=== PATIENT | male | born 1960 | race Caucasian/White ===

== ENCOUNTER 2025-09-06 02:07 | Inpatient (IN) | payer MEDICAID, SELFPAY ==
[2025-09-06] VITALS (111 sets, daily range): BP systolic 60–178; BP diastolic 47–110; PULSE 71–108; RESP 14–24; TEMP 35.5–37.7; O2SAT 96–100; BMI 19.1
--- NOTE | 2025-09-06 02:39 | CTR_ITS ---
PROCEDURE INFORMATION: Exam: CT Head Without Contrast Exam date and time: 09/06/2025 2:56 AM Age: 64 years old Clinical indication: Altered mental status/memory loss; Additional info: AMS, cardiac arrest TECHNIQUE: Imaging protocol: Computed tomography of the head without contrast. Radiation optimization: All CT scans at this facility use at least one of these dose optimization techniques: automated exposure control; mA and/or kV adjustment per patient size (includes targeted exams where dose is matched to clinical indication); or iterative reconstruction. COMPARISON: No relevant prior studies available. RADIATION DOSE METRICS: Total DLP (mGy-cm): 1108.8 FINDINGS: Brain: No edema, mass effect, or midline shift. No acute intracranial hemorrhage. Periventricular and deep white matter hypodensities compatible with chronic microvascular ischemic changes. Chronic left basal ganglia lacunar infarcts. Cerebral ventricles: No ventriculomegaly. Paranasal sinuses: Visualized sinuses are unremarkable. No fluid levels. Mastoid air cells: No mastoid effusion. Bones: Unremarkable. No acute fracture. Soft tissues: Unremarkable. CT/CT head wo con* 11317 IMPRESSION: No acute intracranial abnormality.
--- NOTE | 2025-09-06 02:39 | CTR_ITS ---
PROCEDURE INFORMATION: Exam: CTA Chest With Contrast Exam date and time: 09/06/2025 3:00 AM Age: 64 years old Clinical indication: Other: AMS, cardiac arrest; Shortness of breath TECHNIQUE: Imaging protocol: Computed tomographic angiography of the chest with contrast. Exam focused on the arteries. 3D rendering (Not supervised by radiologist): MIP and/or 3D reconstructed images were created by the technologist. Radiation optimization: All CT scans at this facility use at least one of these dose optimization techniques: automated exposure control; mA and/or kV adjustment per patient size (includes targeted exams where dose is matched to clinical indication); or iterative reconstruction. Contrast material: OMNI 350; Contrast volume: 100 ml; Contrast route: INTRAVENOUS (IV); COMPARISON: No relevant prior studies available. RADIATION DOSE METRICS: Total DLP (mGy-cm): 735.08 FINDINGS: Tubes, catheters and devices: Endotracheal tube tip resides above paulette. Enteric tube extends to the stomach. Pulmonary arteries: There is a segment of peripheral pulmonary artery the lingula extending anteriorly concerning for segment of pulmonary embolus which could be acute or chronic. Series 7 images 280-286. Aorta: Calcification thoracic aorta. The aorta lumen is not well evaluated due to contrast opacification of the right heart online. Lungs: Diffuse ground-glass opacities throughout both lungs. More focal patchy parenchymal infiltrates left lower lobe and throughout a large portion of the posterior right lung with airspace consolidation most noted in the right lower lobe. Granulomatous calcification left lower lobe medially. Pleural spaces: Bilateral small pleural effusions. Heart: Cardiac enlargement with dilatation of the left atrium and left ventricle. Normal right to left ventricular ratio 0.75. Coronary arteries: Calcification distribution of coronary arteries. Lymph nodes: Unremarkable. No enlarged lymph nodes. Bones/joints: Unremarkable. No acute fracture. Soft tissues: Unremarkable. PROCEDURE INFORMATION: Exam: CT Abdomen And Pelvis With Contrast Exam date and time: 09/06/2025 3:00 AM Age: 64 years old Clinical indication: Other: AMS, cardiac arrest; Shortness of breath TECHNIQUE: Imaging protocol: Computed tomography of the abdomen and pelvis with contrast. Radiation optimization: All CT scans at this facility use at least one of these dose optimization techniques: automated exposure control; mA and/or kV adjustment per patient size (includes targeted exams where dose is matched to clinical indication); or iterative reconstruction. Contrast material: OMNI 350; Contrast volume: 100 ml; Contrast route: INTRAVENOUS (IV); COMPARISON: No relevant prior studies available. RADIATION DOSE METRICS: Total DLP (mGy-cm): 735.08 FINDINGS: Liver: Normal. No mass. Gallbladder and biliary ducts: Normal. No calcified stones. No ductal dilation. Pancreas: Normal. No ductal dilation. Spleen: Small areas of decreased attenuation within the spleen are indeterminate. Adrenal glands: Normal. No mass. Kidneys and ureters: Bilateral renal cysts. The largest left kidney measures 5.7 cm. Prominent interspace narrowing at L4 and L5. Exophytic lesion lateral left kidney measures 1.6 cm of higher attenuating value than simple cyst HU 40. Stomach and bowel: Prominent air distension of the stomach. Minor colonic diverticulosis. Appendix: No evidence of appendicitis. Intraperitoneal space: Unremarkable. No free air. No significant fluid collection. Vasculature: Calcified abdominal aorta. Lower attenuation areas within venous vasculature in the pelvis could be on the basis of venous contrast mixing. Small collections of air near branch venous vasculature at the right inguinal soft tissues potentially related to contrast administration. Lymph nodes: Unremarkable. No enlarged lymph nodes. Urinary bladder: Numerous bladder calculi. Moderate bladder distension. Focal areas of bladder wall thickening bilaterally. Reproductive: Enlargement of the prostate gland with heterogeneous appearance. There is a superior prostate nodule/mass measuring 3.3 cm impressing the bladder base. Prostate gland calcifications. Bones/joints: Degenerative change of the spine. Soft tissues: Unremarkable. CT/CT angio chest w abd pel w con IMPRESSION: 1. Possible segment of peripheral pulmonary artery embolus at the lingula. 2. Calcified thoracic aorta with limited assessment of the lumen by noncontrast opacification due to pulmonary embolus protocol. 3. Bilateral small pleural effusions. 4. Diffuse prominent ground-glass opacities throughout both lungs which could be on the basis of edema or infectious etiology. 5. Or focal interstitial infiltrates left lower lung and throughout the right lung most pronounced in the right lower lobe suspicious for pneumonia potentially aspiration. 6. Cardiac enlargement. (In IMPRESSION: 1. Bilateral renal cysts. No follow-up is required. 2. Scattered peripheral small lower attenuating areas and spleen are indeterminate. Differential might include small infarcts are should be correlated for any history of neoplasm for infiltrative process. 3. Multiple bladder calculi. 4. Enlargement of the prostate gland with lobular mass at the junction of bladder base and superior prostate gland probably a prostate gland origin. Consider genitourinary consultation. 5. Small low attenuating areas at the inguinal venous vasculature probably on the basis of venous contrast mixing. 6. Lower attenuating lesion lateral left kidney of higher attenuating cyst although further investigation is required with multiphase CT or multiphase MRI. COMMENTS: Consistent with the [employer]'s Incidental Findings Committee white paper (J Am April Radiol 2018): Any incidental renal lesion less than 1 cm or classified as too small to characterize, or any incidental cystic renal lesion characterized as simple-appearing, is likely benign. No follow-up imaging is recommended for these lesions per consensus recommendations based on imaging criteria.
--- NOTE | 2025-09-06 02:40 | XRR_ITS ---
PROCEDURE INFORMATION: Exam: XR Chest Exam date and time: 09/06/2025 3:07 AM Age: 64 years old Clinical indication: Device placement; Other: Ett and ng tube placement; Additional info: S/P intubation for cardiac arrest, SOB TECHNIQUE: Imaging protocol: Radiologic exam of the chest. Views: 1 view. COMPARISON: CT angio chest w abd pel w con 09/06/2025 3:00 AM FINDINGS: Tubes, catheters and devices: Endotracheal tube tip resides 3.0 cm above the paulette. Enteric tube extends to the left upper quadrant. A prominent portion of the left heart and left lung medially are obscured by external defibrillator pad. Lungs: Diffuse vascular congestion and suspected underlying interstitial edema. More focal airspace consolidation throughout the right lung which could reflect airspace edema or infiltrate. Correlate to CTA chest. Pleural spaces: Small pleural effusions are not apparent as concurrently demonstrated by CTA chest. No pneumothorax. Heart/Mediastinum: Accentuated heart size. Bones/joints: Unremarkable. XR/XR chest 1V portable [id number] IMPRESSION: 1. Accentuated heart size. 2. Vascular congestion and suspected interstitial edema. 3. More focal central airspace consolidation greater on the right which could reflect airspace edema or pneumonia versus combination in aspiration to the right lung is potential as correlated to concurrent CTA chest.
--- NOTE | 2025-09-06 02:41 | ECG_ITS ---
[facility] Date: 2025-09-06 Pat Name: Kel Pagan Department: Room: Gender: Male Assistant Portfolio Manager: : [id number] Requested By: Fernando Hunter Order Number: [id number] Post MD: Patel Ramos M.D. Measurements Intervals [place] Rate: 141 P: 0 NM: 0 QRS: 111 QRSD: 144 T: 47 QT: 301 QTc: 461 Interpretive Statements ATRIAL FLUTTER/TACHYCARDIA WITH RAPID VENTRICULAR RESPONSE INDETERMINATE AXIS RIGHT BUNDLE BRANCH BLOCK [120+ ms QRS DURATION, UPRIGHT V1, 40+ ms S IN I/aVL/V4/V5/V6] No previous ECG available for comparison Electronically Signed On 09-06-2025 23:40:37 TRAIN BRAKER by Patel Ramos M.D. [email or web address]
[2025-09-06 02:44] LABS: Arterial Blood Gas Hematocrit 54.6 % (42-52); Blood Gas Allen Test Pos; Blood Gas Operator Identificat SAM; Blood Gas Sample Site Radial, right; Blood Gas Sample Type Arterial; Blood Gas Tidal Volume 0.40; Carboxyhemoglobin 0.7 %THgb (0.4-20.1); HCO3 ABG 17.5 mmol/L (22-26); Methemoglobin 0.2 % (0.4-1.5); PEEP 7.0 cmH20; PO2 ABG 89.7 mmHg (80.0-100.0); PO2 FiO2 Ratio Arterial Blood 89
--- NOTE | 2025-09-06 02:58 | PC.NURSE ---
Code Blue 0216 Pulse not felt, pt agonal and unresponsive CPR Started 0218 Right Tibia IO established 0219 Pulse Check - PEA/No palatable pulse, CPR resumed 0220 1 Amp Epi Bedside US + Heart wall movement HR 210 spontaneous breaths 0222 BP 270/211 0225 20 mg Etomidate 60 mg Vecuronium 0226 HR 155 BP 272/191 SPO2 88% - Assisted Breaths [address] uHnter 23 @ lip (+ color change, + bilateral breath sounds) Ordered: Full labs, Head CT, Chest/Abd/Pelvis CT, Fentanyl and Levo gtt on stand by 0232 HR 141 SPO2 94% 231/155 EKG Performed
--- NOTE | 2025-09-06 03:03 | ED_ITS ---
HPI - SOB/Dyspnea 2 General: Chief Complaint: Shortness of Breath/Dyspnea Stated Complaint: SOB Time Seen by Provider: 09/06/25 02:39 History of Present Illness: HPI Narrative: 64-year-old male with a history of hyper tension presenting to the emergency department with few hour history of acute onset shortness of breath, history obtained by given patient critically ill on arrival and unable to provide history. She reports that he has been complaining of chest pains on and off over the last few years, he has complained of that over the last few days but that was not unusual for him, he has a history of former alcohol abuse but has not drank alcohol in years, she denies any known history of drug abuse, she denies any known history of falls or recent trauma, reports that he developed shortness of breath acutely this evening, brought him to the hospital, patient was found appearing critically ill in the car outside of the emergency department brought in by staff to the emergency department resuscitation bay. On arrival to the ER patient appeared critically ill but was able to speak and tell me his name, reports that he had shortness of breath as well as head chest and abdominal pain. Shortly after arrival to the emergency department and during initial evaluation patient developed agonal breathing and unresponsiveness, see MDM for details. Related Data Allergies Allergy/AdvReac Type Severity Reaction Status Date / Time No Known Allergies Allergy Verified 09/06/25 02:24 Physical Exam 2 Narrative: EXAM NARRATIVE: Gen: AAO x 1, acutely cool and mottled appearing, critically ill, nondiaphoretic HEENT: Normocephalic, atraumatic, no scleral icterus, external ears normal, moist mucous membranes Neck: Supple, full range of motion, possible midline goiter Lungs: Patient markedly tachypneic on arrival to the mid to upper 20s, diffuse rales to the bilateral lung schuler, no reliable oxygen waveform available on arrival CV: On arrival patient had a mild tachycardia to approximately 100, appeared regular Abdomen: Soft, nondistended, nontender to palpation MSK: No joint swelling, FROM all 4 extremities Skin: Skin is cool and mottled Neuro: Alert and oriented x 1, no slurred speech, sensation and strength grossly intact all 4 extremities Procedures Central Line Placement Left Femoral: Time Out Performed: Yes Patient Placed on Monitor/Pulse Ox: Yes MD Prep: mask, gown and gloves Central Line Prep: Chlorhexidine scrub and sterile drapes applied Ultrasound Used for Placement: Yes Central Line Lumen Inserted: triple Post Procedure: sutured in place, good blood return, all ports aspirated, flushed, capped and sterile dressing applied Intubation Time out performed: No sedative: Etomidate Mg Given: 20 paralytic: Vecuronium Mg Given: 6 Laryngoscope: Johan ET Tube Size: 8 ET Tube Uncuffed: No Tube Secured Depth (cm): 23 Tube Secured Location: lips Tube Placement Confirmation: visualized tube passing through cords, equal breath sounds bilaterally, no breath sounds over epigastrium and confirmation by capnometry IO Right Tibia: IO Instrument Used to Penetrate the Cortex: battery powered IO drill Course 2 Reevaluation(s): Reevaluation #1: Central line placed by myself in the left femoral vein without complication at this time, workup showing elevation in LFTs as well as glucose, elevated proBNP, minimally elevated troponin, elevated white count, pending radiology reads but appears to have pulmonary vascular congestion versus pneumonitis versus pneumonia as his predominant finding, covered with empiric antibiotics, starting sedation, will give IV labetalol for marked hypertension 190s over 130s. Time: 04:01 Reevaluation #2: Patient with marked drop in blood pressure, coinciding with administration of labetalol but also with Ledezma placement for which there was a rapid 1 L output, I suspect the patient may have had a component of acute urinary retention that was exacerbating his hypertension, will start Levophed, patient on Rachel hugger for hypothermia to 95 Fahrenheit, propofol currently held temporarily until blood pressure improves. Time: 04:13 Reevaluation #3: BP rapidly improved, now hypertensive 160s over 109, Levophed decreased to 5, propofol now up to 10 mcg/kg/min, will initiate low-dose fentanyl at 25 mics per hour to address any hypertension related to light sedation, will leave Levophed at low-dose 5 mics per minute for now until we can titrate a steady dose of sedative and discontinue thereafter if hemodynamics still stable Time: 04:49 Consultations: Consultation #1: Spoke with hospitalist Dr. Jay who will come see the patient in the ER for evaluation and admission Time: 04:50 Vital Signs: Vital signs: Vital Signs Temperature 95.9 F L 09/06/25 04:00 Pulse Rate 108 H 09/06/25 02:10 Respiratory Rate 14 09/06/25 02:25 Blood Pressure 178/110 09/06/25 02:10 Fraction of Inspir ed Oxygen 100 09/06/25 02:25 MDM - SOB/Dyspnea Medical Decision Making 64-year-old male with a past medical history of hypertension, no other known significant medical history although reports that he does not seek medical care and avoids doctors so unclear medical history, presenting the emergency department with acute onset of dyspnea at home times few hours, on arrival to the emergency department patient was awake and alert, able to repeat his name and briefly describe his symptoms but appeared cool and mottled with increased work of breathing, within a couple minutes of arriving to the emergency department patient stopped responding, agonal breathing noted, initial mild tachycardia decreased to a minor bradycardia in the 50s and no pulse was felt, ACLS was initiated for presumed pulseless electrical activity/cardiac arrest of unclear etiology, right tibial IO was placed without complication and given epinephrine, patient was bagged until RSI could be administered because he would intermittently move his arms but was not significantly responsive or able to protect his airway, RSI was administered with etomidate and vecuronium and patient was intubated via direct laryngoscopy with a 8.0 Ugandan ET tube to 23 cm at the lip without complication, after 1 round of CPR pulse was felt, CPR terminated, repeat blood pressure showing marked hypertension 240 systolic with tachycardia in the 130s and EKG showing what appeared to be in atrial flutter/atrial tachycardia, there was significant T wave inversions in the anterior leads but no STEMI criteria, differential of patient's cardiac arrest is broad but includes heart failure with hypercapnic respiratory failure secondary to undiagnosed underlying cardiac disease, intracranial hemorrhage, aortic dissection, plan for CT of the head chest abdomen pelvis, labs, titrate sedation, trial of IV labetalol, continue to monitor. Prognosis guarded, updated on current situation Lab Data Lab work significant for leukocytosis to 17, also noted to have thrombocytosis to 600 and mild erythrocytosis to 17.9, remainder of blood work also significant for elevated lactic acidosis to 9 and pH shortly after intubation with a pCO2 in the 70s for which respiratory rate was increased by respiratory therapy at time of ABG result, creatinine normal, glucose elevated at 324, troponin elevated at 69 and proBNP 2458 09/06/25 02:45 09/06/25 02:45 Labs/Radiology: Radiology Impressions Chest/Abdomen/Pelvis CT 09/06/25 02:39 IMPRESSION: 1. Possible segment of peripheral pulmonary artery embolus at the lingula. 2. Calcified thoracic aorta with limited assessment of the lumen by noncontrast opacification due to pulmonary embolus protocol. 3. Bilateral small pleural effusions. 4. Diffuse prominent ground-glass opacities throughout both lungs which could be on the basis of edema or infectious etiology. 5. Or focal interstitial infiltrates left lower lung and throughout the right lung most pronounced in the right lower lobe suspicious for pneumonia potentially aspiration. 6. Cardiac enlargement. (In IMPRESSION: 1. Bilateral renal cysts. No follow-up is required. 2. Scattered peripheral small lower attenuating areas and spleen are indeterminate. Differential might include small infarcts are should be correlated for any history of neoplasm for infiltrative process. 3. Multiple bladder calculi. 4. Enlargement of the prostate gland with lobular mass at the junction of bladder base and superior prostate gland probably a prostate gland origin. Consider genitourinary consultation. 5. Small low attenuating areas at the inguinal venous vasculature probably on the basis of venous contrast mixing. 6. Lower attenuating lesion lateral left kidney of higher attenuating cyst although further investigation is required with multiphase CT or multiphase MRI. COMMENTS: Consistent with the [employer]'s Incidental Findings Committee white paper (J Am April Radiol 2018): Any incidental renal lesion less than 1 cm or classified as too small to characterize, or any incidental cystic renal lesion characterized as simple-appearing, is likely benign. No follow-up imaging is recommended for these lesions per consensus recommendations based on imaging criteria. ADDENDUM: 09/06/25 0437 THIS REPORT CONTAINS FINDINGS THAT MAY BE CRITICAL TO PATIENT CARE. The findings were verbally communicated via telephone conference with Fernando Demarco by Dr. Howell on 09/06/2025 4:35 AM OPHTHALMIC LENS INSPECTOR. The results were acknowledged and understood. Head CT 09/06/25 02:39 IMPRESSION: No acute intracranial abnormality. Chest X-Ray 09/06/25 02:40 IMPRESSION: 1. Accentuated heart size. 2. Vascular congestion and suspected interstitial edema. 3. More focal central airspace consolidation greater on the right which could reflect airspace edema or pneumonia versus combination in aspiration to the right lung is potential as correlated to concurrent CTA chest. Laboratory Results WBC 17.66 10^3/uL (3.29-11.43) H 09/06/25 02:45 RBC 6.73 10^6/uL (3.85-5.65) H 09/06/25 02:45 Hgb 17.90 g/dL (11.27-16.99) H 09/06/25 02:45 Hct 58.3 % (37-53) H 09/06/25 02:45 MCV 86.6 fl (82-101) 09/06/25 02:45 MCH 26.6 pg (27-33) L 09/06/25 02:45 MCHC 30.7 g/dL (30-55) 09/06/25 02:45 RDW 15.9 % (12.1-15.1) H 09/06/25 02:45 Plt Count 605 10^3/cmm (157-399) H 09/06/25 02:45 MPV 10.9 fL (7.4-10.4) H 09/06/25 02:45 Neut % (Auto) 55.8 % 09/06/25 02:45 Lymph % (Auto) 35.1 % 09/06/25 02:45 Louisa % (Auto) 4.0 % 09/06/25 02:45 Eos % (Auto) 2.0 % 09/06/25 02:45 Baso % (Auto) 0.9 % 09/06/25 02:45 Neut # (Auto) 9.85 10^3/uL (1.8-7.7) H 09/06/25 02:45 Lymph # (Auto) 6.2 10^3/uL (0.8-4.8) H 09/06/25 02:45 Louisa # (Auto) 0.7 10^3/uL (0.2-0.9) 09/06/25 02:45 Eos # (Auto) 0.4 10^3/uL (0.0-0.8) 09/06/25 02:45 Baso # (Auto) 0.2 10^3/uL (0.0-0.1) H 09/06/25 02:45 Nucleated RBC % (auto) 0 % 09/06/25 02:45 Nucleated RBCs # 0.0 /100WBC 09/06/25 02:45 PT 14.80 SECONDS (12.1-14.9) 09/06/25 02:45 INR 1.08 (0.8-1.2) 09/06/25 02:45 APTT 59.9 SECONDS (23.9-36.7) H 09/06/25 02:45 Specimen Type Arterial 09/06/25 02:32 Sample Site Radial, right 09/06/25 02:32 ABG pH 7.00 (7.35-7.45) L* 09/06/25 02:32 ABG pCO2 71.2 mmHg (35-45) H* 09/06/25 02:32 ABG pO2 89.7 mmHg (80.0-100.0) 09/06/25 02:32 ABG PO2/FiO2 Ratio 89 09/06/25 02:32 ABG HCO3 17.5 mmol/L (22-26) L 09/06/25 02:32 ABG Base Excess -15.5 mmol/L (-2.0-2.0) L 09/06/25 02:32 Jerel Test Pos 09/06/25 02:32 Hematocrit 54.6 % (42-52) H 09/06/25 02:32 Hgb O2 Saturation 89.5 % (95-100) L 09/06/25 02:32 Carboxyhemoglobin 0.7 %THgb (0.4-20.1) 09/06/25 02:32 Methemoglobin 0.2 % (0.4-1.5) L 09/06/25 02:32 Total Hemoglobin 17.8 g/dL (14-18) 09/06/25 02:32 O2 Delivery Device Vent 09/06/25 02:32 FiO2 100.0 % 09/06/25 02:32 Tidal Volume 0.40 09/06/25 02:32 PEEP 7.0 cmH20 09/06/25 02:32 Colorist Photography ID Preet 09/06/25 02:32 Sodium 138 mmol/L (136-145) 09/06/25 02:45 Potassium 3.5 mmol/L (3.5-5.1) 09/06/25 02:45 Chloride 97 mmol/L (98-107) L 09/06/25 02:45 Carbon Dioxide 17 mmol/L (22-29) L 09/06/25 02:45 Anion Gap 27.5 (5-19) H 09/06/25 02:45 BUN 17 mg/dL (8-23) 09/06/25 02:45 Creatinine 0.5 mg/dL (0.7-1.2) L 09/06/25 02:45 GFR Calculation 166.4 mL/min (90-130) H 09/06/25 02:45 Glucose 324 mg/dL (65-115) H 09/06/25 02:45 POC Glucose 151 mg/dL (70-110) H 09/06/25 02:20 Calculated Osmolality 300 mOsm/kg (285-295) H 09/06/25 02:45 Lactic Acid 9.9 mmol/L (0.5-2.2) H* 09/06/25 02:45 Calcium 9.1 mg/dL (8.5-10.5) 09/06/25 02:45 Magnesium 2.6 mg/dL (1.7-2.3) H 09/06/25 02:45 Total Bilirubin 1.6 mg/dL (0.15-1.2) H 09/06/25 02:45 AST 49 U/L (0-40) H 09/06/25 02:45 ALT 42 U/L (0-41) H 09/06/25 02:45 Alkaline Phosphatase 96 U/L (40-130) 09/06/25 02:45 Troponin T Baseline 69 ng/L (0-15) H 09/06/25 02:45 NT-Pro-B Natriuret Pep 2458 pg/mL (0-125) H 09/06/25 02:45 Total Protein 7.0 g/dL (6.6-8.7) 09/06/25 02:45 Albumin 4.5 g/dL (3.5-5.2) 09/06/25 02:45 Globulin 2.5 g/dL (1.3-4.6) 09/06/25 02:45 All radiology interpretation(s) finalized by discharge ED provider radiology interpretation(s): CT head negative for intracranial bleed or evidence of anoxic brain injury, CTA chest abdomen pelvis showing ground glass opacities diffusely throughout the right lung mostly to the right lower lobe consistent with possible aspiration pneumonia/pneumonia with component of heart failure suggested but not confirmed, also a possible distal subsegmental pulmonary embolism to the left lingula, EKG Data EKG 1: I personally reviewed and interpreted this EKG as follows: EKG Interpretation Date: 09/06/25 EKG interpretation time: 02:32 Interpretation: Atrial flutter at 141 bpm versus atrial tachycardia, no STEMI, rate related ischemic changes with T wave inversions noted to the anterior precordial leads, QTc 383 ms, right bundle branch block EKG 2: I personally reviewed and interpreted this EKG as follows: EKG Interpretation Date: 09/06/25 EKG interpretation time: 03:19 Interpretation: Sinus tachycardia at 119 bpm with short RI interval, no STEMI, QTc 499 ms, right bundle branch block Critical Care Time 2 Critical Care Time: Critical Care Time: Yes Total Critical Care Time: 91 Attestation: This case had a high probability of a clinically significant, sudden, or life threatening deterioration of this patient's condition which required my full and direct attention, intervention and personal management. Discharge Plan Discharge Patient Disposition: Admitted As Inpatient Clinical Impression: Respiratory failure, Pneumonia, Heart failure, Cardiac arrest, Shock liver, Acute urinary retention Condition: Stable Coding Level of Care Code ED Studio Coordinator for Bernice Wilkins
[2025-09-06 03:06] LABS: Hematocrit 58.3 % (37-53); Hemoglobin 17.90 g/dL (11.27-16.99); Mean Corpuscular HGB Conc 30.7 g/dL (30-55); Mean Corpuscular Hemoglobin 26.6 pg (27-33); Mean Corpuscular Volume 86.6 fl (82-101); Nucleated Red Blood Cells % 0 %; Platelet Count 605 10^3/cmm (157-399); Red Blood Count 6.73 10^6/uL (3.85-5.65); White Blood Count 17.66 10^3/uL (3.29-11.43)
[2025-09-06 03:16] LABS: INR 1.08 (0.8-1.2); Prothrombin Time 14.80 SECONDS (12.1-14.9)
[2025-09-06 03:18] LABS: Partial Thromboplastin Time 59.9 SECONDS (23.9-36.7)
--- NOTE | 2025-09-06 03:19 | ECG_ITS ---
[facility] [place] [facility] Date: 2025-09-06 Pat Name: Kel Pagan Department: Room: Gender: Male Clinical Asst: : 1960 Requested By: Fernando Hunter Order Number: [id number] Sincere MD: Patel Ramos M.D. Measurements Intervals [place] Rate: 119 P: 54 NV: 108 QRS: 120 QRSD: 142 T: 54 QT: 428 QTc: 604 Interpretive Statements SINUS TACHYCARDIA WITH SHORT NV INTERVAL POSSIBLE RIGHT ATRIAL ENLARGEMENT [0.25mV P-WAVE] POSSIBLE LEFT ATRIAL ENLARGEMENT [-0.1mV P-WAVE IN V1/V2] INDETERMINATE AXIS RIGHT BUNDLE BRANCH BLOCK [120+ ms QRS DURATION, UPRIGHT V1, 40+ ms S IN I/aVL/V4/V5/V6] No previous ECG available for comparison Electronically Signed On 09-06-2025 23:40:25 PATIENT OBSERVER by Patel Ramos M.D. [email or web address]
[2025-09-06 03:32] LABS: Alanine Aminotransferase 42 U/L (0-41); Albumin Level 4.5 g/dL (3.5-5.2); Alkaline Phosphatase 96 U/L (40-130); Anion Gap 27.5 (5-19); Aspartate Amino Transferase 49 U/L (0-40); Blood Urea Nitrogen 17 mg/dL (8-23); Calcium 9.1 mg/dL (8.5-10.5); Carbon Dioxide 17 mmol/L (22-29); Chloride 97 mmol/L (98-107); Globulin 2.5 g/dL (1.3-4.6); Glucose 324 mg/dL (65-115); Magnesium 2.6 mg/dL (1.7-2.3); Osmolality Calculated 300 mOsm/kg (285-295); Potassium 3.5 mmol/L (3.5-5.1); Sodium 138 mmol/L (136-145); Total Protein 7.0 g/dL (6.6-8.7)
[2025-09-06 03:33] LABS: Troponin(5th) Baseline 69 ng/L (0-15)
[2025-09-06 03:37] LABS: NT Pro B Type Natriuretic Pept 2458 pg/mL (0-125)
[2025-09-06 03:42] LABS: Lactic Sepsis W/Reflex 9.9 mmol/L (0.5-2.2)
[2025-09-06] MEDS: labetalol 5 mg/mL SDV 20mL 20 MG IVP (03:50)
[2025-09-06] MEDS: norepinephrine 4 MG/250 ML BAG 37.5 MG IV (04:15)
[2025-09-06 04:42] LABS: Reflex Lactate Order REFLEX LACTIC ORDERD
[2025-09-06 04:56] LABS: Glucose Urine UA Trace (Normal); Nitrate Urine Negative (Negative); Specific Gravity, Urine 1.022 (1.005-1.030)
[2025-09-06] MEDS: propofol 1,000 MG/100 ML INJ 1.61 MG IV (04:56)
[2025-09-06] MEDS: propofol 1,000 MG/100 ML INJ 3.23 MG IV (04:58)
[2025-09-06] MEDS: fentaNYL 1,000 MCG/100 ML BAG 2.5 MCG IV (04:59)
[2025-09-06] MEDS: norepinephrine 4 MG/250 ML BAG 18.75 MG IV (04:59)
[2025-09-06 05:01] LABS: Universal Test for UA Present (0)
[2025-09-06] MEDS: propofol 1,000 MG/100 ML INJ 6.46 MG IV (05:10)
--- NOTE | 2025-09-06 05:12 | PM.HP ---
Providers/Chief Complaint Primary Care Provider: Leandro Main DO Chief Complaint: SOB History of Present Illness Kel Pagan is a 64 year old male with reported history of hypertension who presented to the ED with complaints of shortness of breath. History is limited to spouse and grandson who are present as the patient is currently intubated. I am told the patient was in his usual state of health last night when he went to sleep and had trouble breathing when laying down. He then went to his couch where his dyspnea continued. By this time, he was having difficulty standing. Family delivered him to the ED where his shortness of breath worsened. His condition overall deteriorated in the ED and a CODE BLUE was called. In discussion with the ED physician, patient was thought to have PEA arrest and underwent 2-4 minutes of resuscitative efforts with ROSC. ED course was complicated by hypertension which was eventually improved with sedation after intubation, hinds catheter placement with release of 1.5L of urine, and labetalol administration. Workup in the ED with imaging suggest community aquired pneumonia and a small PE in the lingula In further discussion with the family, patient had no complaints prior to today. Last seen by his PCP about 3 years ago without reported concerns Medications/Allergies Allergies Allergy/AdvReac Type Severity Reaction Status Date / Time No Known Allergies Allergy Verified 09/06/25 02:24 Vitals/I&O/Wt Last Vital Signs Temp 95.9 F L 09/06/25 04:00 Pulse 108 H 09/06/25 02:10 Resp 14 09/06/25 02:25 BP 178/110 09/06/25 02:10 FiO2 100 09/06/25 02:25 09/05/25 09/05/25 09/06/25 14:59 22:59 06:59 Intake Total 27.554 / 27.554 Balance 27.554 / 27.554 Weight last 48 hrs Weight 53.796 kg Physical Exam Const: OTHER: Frail appearing. Sedated Eye: OTHER: Injected conjunctiva. PERRLA, spontaneous eye movements noted Resp: OTHER: Clear to anterior auscultation. On mechanical ventillations Cardio: OTHER: RRR. No MGR. No peripheral edema GI: OTHER: scaphoid abdomen. No masses : OTHER: Hinds catheter present draining yellow colored urine Extremity: OTHER: Cold distal extremities. Appear mottled. Neuro: OTHER: Sedated. Mild non-purposeful mouth twitches noted Skin: OTHER: No breaks in the skin observed Urinary Catheter Management: Hinds: Cath Placed During This Visit: yes Urinary Catheter Date of Insertion: 09/06/25 Urinary Catheter Time of Insertion: 04:30 Data 09/06/25 02:45 09/06/25 02:45 Micro: Microbiology 09/06/25 04:30 Blood Culture - Preliminary Blood SPECIMEN COLLECTED 09/06/25 04:16 Blood Culture - Preliminary Blood SPECIMEN COLLECTED A&P Assessment and plan 1. Acute urinary retention: 2. Cardiac arrest: 3. Heart failure: 4. Pneumonia: 5. Respiratory failure: Plan: Acute hypoxic and hypercapnic respiratory failure PEA arrest ?CHF, not otherwise specified Lactic acidosis - Respiratory failure likely led to PEA arrest - Admit to ICU - Consult pulmonary/critical care in the AM - Check echocardiogram - Check TSH and lipid panel - Wean sedation and MV as tolerated Community aquired pneumonia - Continue Azithromycin and Rocephin - Blood cultures have been ordered - Check sputum culture Lingular pulmonary embolism - Treat with 1mg/kg BID lovenox Hypertension - PRN antihypertensives where indicated PDMP PDMP Reviewed: Not Reviewed Attestations Medical Necessity Statement*: Patient will require greater than two midnights to manage his respiratory failure Coding Level of Care Code Acute Code for [facility] Fwd Diagnoses Acute urinary retention R33.8 Cardiac arrest I46.9 Heart failure I50.9 Pneumonia J18.9 Respiratory failure J96.90
[2025-09-06] MEDS: fentaNYL 1,000 MCG/100 ML BAG 5 MCG IV (05:17)
[2025-09-06 05:21] LABS: ABG PCO2 35.0 mmHg (35-45); ABG PH Result 7.37 (7.35-7.45); Alveolar-Arterial Oxygen Gradi 70.2 mmHg (5-10); Arterial Blood Gas Hematocrit 47.5 % (42-52); Blood Gas Allen Test Pos; Blood Gas Sample Site Radial, right; Blood Gas Sample Type Arterial; Blood Gas Tidal Volume 0.45; Carboxyhemoglobin 0.7 %THgb (0.4-20.1); Glucose Level-ABG 153.0 mg/dL (70-115); HCO3 ABG 20.2 mmol/L (22-26); Ionized Calcium Level - ABG 1.0 mmol/L (1.1-1.4); Methemoglobin 0.0 % (0.4-1.5); Oxygen Saturation ABG > 99.1; PEEP 7.0 cmH20; PO2 ABG 128.0 mmHg (80.0-100.0); PO2 FiO2 Ratio Arterial Blood 128; Potassium Level - ABG 2.6 mmol/L (3.5-5.0); Sodium Level - ABG 141.0 mmol/L (131-143)
--- NOTE | 2025-09-06 05:22 | USCV_ITS ---
Kel Pagan Age: 64 Gender: M : 1960 Exam Date: 09/06/2025 11:59 Ordering Phys: Checo Jay MD Technologist: Exam Location: [facility] [place] Indication: nstimi BP: 134 / 93 HR: 78 Rhythm: Sinus Technical Quality: Adequate MEASUREMENTS (Male / Female) Normal Values 2D ECHO LV Ejection Fraction MOD 4C 43.2 % LV Ejection Fraction MOD 2C 51.9 % LV Ejection Fraction 2C AL 52.5 % RA Systolic Volume 4C AL 37.1 ml RA Systolic Volume 4C MOD 34.8 ml LA Sys Volume AL 59.4 cm cubed LA Sys Volume Index AL 29.8 cm cubed/m squared DOPPLER AV Peak Velocity 101.0 cm/s LVOT Peak Velocity 69.0 cm/s MV Peak Velocity 88.0 cm/s MV Area PHT 3.5 cm squared Mitral E to A Ratio 0.7 FINDINGS Left Ventricle Diffuse hypokinesia of the left-ventricular with an ejection fraction of 43%. Mildly dilated LV cavity.mild left ventricular hypertrophy. Grade I/IV diastolic dysfunction (abnormal relaxation filling pattern), normal to mildly elevated filling pressures. Right Ventricle Normal right ventricular size and systolic function. Right Atrium Normal right atrial size. Left Atrium Normal left atrial size. IA Septum Normal appearance of the interatrial septum. Mitral Valve No gross abnormalities noted Aortic Valve No gross abnormalities noted Tricuspid Valve No gross abnormalities noted Pulmonic Valve Pulmonic valve not well visualized. Pericardium No pericardial effusion. Aorta Normal aortic annulus size. IVC Inferior vena cava not visualized. CONCLUSIONS Diffuse hypokinesia of the left-ventricule with an ejection fraction of 43%. Mildly dilated LV cavity.mild left ventricular hypertrophy. Grade I/IV diastolic dysfunction (abnormal relaxation filling pattern), normal to mildly elevated filling pressures. No significant valvular abnormalities. There is no pericardial effusion. There are no intracardiac masses. No similar previous studies are available for comparison Dr Patel Ramos MD [facility] (Electronically Signed) Final Date: 06 September 2025 17:37 S
[2025-09-06] MEDS: cefTRIAXone 1,000 mg SDV 1000 MG IVP (05:51)
--- NOTE | 2025-09-06 06:23 | PC.NURSE ---
Pt's family came in asking for assistance in getting the pt out of the car. Upon arriving at the car Charge nurse and UC found the pt to be struggling to breath. Pt was removed from the car and brought straight back to the room. Pt was moved from the wheelchair to the bed and was in visible distress. Pt was in the room maybe 7 mins prior coding. Pt was alert to person and was able to tell the dr where his abd pain was before he started having agonal breathing. Dr Hunter asked family about intubation prior to the code family agreed.
[2025-09-06 06:28] LABS: Estmated Average Glucose 108; Hemoglobin A1C 5.4 % (4.0-6.0)
[2025-09-06 06:36] LABS: Cholesterol 286 mg/dL (0-200); HDL Cholesterol 75 mg/dL (60-100); Thyroid Stimulating Hormone 3.96 uIU/mL (0.27-4.20); Triglycerides 170 mg/dL (0-150)
[2025-09-06 06:53] LABS: Lactic Acid level (Lactate) 3.1 mmol/L (0.5-2.2)
[2025-09-06 06:56] LABS: Troponin 5 2HR 823.0 ng/L (0-15); Troponin 5 2HR Delta 754.0 ABS# (0-10)
--- NOTE | 2025-09-06 07:15 | PC.NURSE ---
pt bp decreasing, 108/81, nurse asked ED provider about stopping propofolol, ED provider told nurse to get ahold of hospitalist.
--- NOTE | 2025-09-06 08:54 | PM.CONSULT ---
Providers/Reason For Consult Consulting Physician/Specialty*: Dr Sandra Vidal Reason for Consult*: Mechanical ventillation Primary Care Provider: Leandro Main DO History of Present Illness History of Present Illness Kel Pagan is a 64 year old male with pmhx of htn was brought in by family with complains of shortness of breath, was intubated urgently after having a PEA cardiac arrest. Had one round of epi and regained ROSC savannah. Currently on 12 of levo, fentanyl 75 mcgs and propofol 25. on vent at AC- 450 ml/8 of peep/40% fio2. Was given 1L NS in ER for sepsis bolus ROS: unobtainable on vent Medications/Allergies Home Medications ?Medication ?Instructions ?Recorded ?Confirmed ?Last Taken ?Type aspirin 325 mg tablet (Karmen 325 mg PO PRN 09/06/25 09/06/25 09/05/25 History Aspirin) Allergies Allergy/AdvReac Type Severity Reaction Status Date / Time No Known Allergies Allergy Verified 09/06/25 02:24 Current Medications Generic Name Dose Route Start Last Admin Trade Name Freq PRN Reason Stop Dose Admin Fentanyl 1,000 mcg in 100 mls @ 0 mls/hr 09/06/25 02:45 09/06/25 06:40 Sublimaze IV 75 mcg/hr .Q0M DEBORA 7.5 mls/hr Protocol Titration Per Protocol Propofol 1,000 mg in 100 mls @ 0 mls/hr 09/06/25 02:45 09/06/25 08:27 Diprivan IV 25 mcg/kg/min .Q0M DEBORA 8.07 mls/hr Protocol Titration Per Protocol Norepinephrine Bitartrate 4 mg in 250 mls @ 0 mls/hr 09/06/25 04:15 09/06/25 08:05 Levophed IV 12 mcg/min .Q0M DEBORA 45 mls/hr Protocol Titration Per Protocol Insulin Human Lispro 0 unit 09/06/25 08:00 09/06/25 08:21 Insulin Lispro 100 Unit/1 Ml SUBCUT Not Given WM&BEDTIME DEBORA Protocol PFSH Acute PFSH: Medical History (Updated 09/06/25 @ 18:09 by Sandra Vidal MD) Septic shock Vitals/I&O/Wt Last Vital Signs Temp 97.6 F 09/06/25 08:18 Pulse 72 09/06/25 08:18 Resp 20 H 09/06/25 08:42 BP 99/71 09/06/25 08:18 Pulse Ox 100 09/06/25 08:18 O2 Del Method Mechanical Ventilation 09/06/25 08:18 FiO2 40 09/06/25 08:42 09/05/25 09/06/25 09/06/25 22:59 06:59 14:59 Intake Total 1324.796 / 1324.796 90.547 / 90.547 Balance 1324.796 / 1324.796 90.547 / 90.547 Weight last 48 hrs Weight 118 lb 9.6 oz Physical Exam Narrative: Per RN Gen: Intubated, sedated HEENT: EOMI Pulmonary: Coarse crackles bilaterally Cardiovascular: rrr, nl s1s2, Abdomen: soft, nt, nd, no r/g, Extremities: no edema Neurologic: cannot assess currently Agree with above exam Urinary Catheter Management: Ledezma: Cath Placed During This Visit: yes Reason for Continuing Indwelling Catheter: Accurate Measurement of Urinary Output in Critically Ill Patients Urinary Catheter Date of Insertion: 09/06/25 Urinary Catheter Time of Insertion: 04:30 Data 09/06/25 02:45 09/06/25 02:45 Micro: Microbiology 09/06/25 04:30 Blood Culture - Preliminary Blood SPECIMEN COLLECTED 09/06/25 04:16 Blood Culture - Preliminary Blood SPECIMEN COLLECTED A&P Assessment and plan 1. Septic shock: 2. Pneumonia: Plan: # Acute respiratory failure POA Continue vent support and wean as tolerated Maintain sats around 92% Daily SBTs Bronchopulmonary hygiene, bronchodilator therapy # Bilateral pneumonia I reviewed the CT myself, interpretted findings independently Has bilateral pneumonia with air bronchograms Cover with ceftriaxone and zithromax Check strep pneumonia and flu panel Sputum cx pending # Septic shock- POA Continue to wean levo, keep map above 65 Fluid bolus per sepsis protocol Add vaso if needed # Acute metabolic acidosis # PEA cardiac arrest - Echocardiogram pending # Probable Lingular PE Heparin drip started # Transaminitis Most likely secondary to shock # Acute CHF Avoid lasix for now. Monitor urine output and creatinine # Secondary polycythemia # Thrombocytosis # Increased troponins- probable NSTEMI Patient declined cath Cardiology following, appreciate help # Hyperglycemia-insulin sliding scale medium. Avoid hypoglycemia. Maintain blood sugars between 140-180. Dextrose drip if needed # Sedation-continue Propofol gtt and fentanyl drip for now. # Nutrition- NPO, monitor BMs # DVT GI prophylaxis-SCDs and famotidine. heparin gtt # Goals of care-discussed with # CODE STATUS- DNR # Disposition-Will need full ICU support follow-up The high probability of a clinically significant, sudden or life threatening deterioration of the patient's [Respiratory, cardiac and renal] system(s) required my full and direct attention, intervention and personal management. The critical care time is as shown. This time is in addition to time spent performing any reported procedures but includes the following: [x] Data and vital sign review and interpretation [x] Patient assessment, examination and intervention [x] Documentation [x] Medication orders and management Critical Care Time (min): 45 Telemedicine Consent Patient seen today via Telemedicine by agreement and consent of patient.? Telemedicine technology used during the visit includes audio and, as available, review of images.? The patient encounter is appropriate and reasonable under the circumstances given the patient?s particular presentation at this time.? The patient has been advised of the potential risks and limitations of this mode of treatment (including but not limited to the absence of in-person examination) and has agreed to be treated in a remote fashion in spite of them.? Any, and all, of the patient?s/patient?s family?s questions on this issue have been answered and I have made no promises or guarantees to the patient. PDMP PDMP Reviewed: Not Reviewed Coding Level of Care Code Critical Care >/= 30 minutes Diagnoses Septic shock A41.9; R65.21 Pneumonia J18.9
[2025-09-06 08:58] LABS: ABG PCO2 71.2 mmHg (35-45); ABG PH Result 7.00 (7.35-7.45)
--- NOTE | 2025-09-06 09:14 | XR_ITS ---
WS: [id number] Exam: XR chest 1V portable [id number] Date/Time of Exam: 09/06/2025 9:43 AM Reason For Exam: Post PICC insertion Comparison with the study performed earlier on the same day at 3:09 a.m. A left-sided PICC line has been placed and ends in the distal SVC in good position. ET tube ends 3 cm above the paulette in satisfactory location. An enteric tube extends below the diaphragm and has looped back cephalad probably ending in the fundus of the stomach. Heart size top limits normal. The media stinum is normal in contour. There are diffuse airspace and interstitial infiltrates suggesting that of pulmonary edema. Underlying pneumonia not excluded. Infiltrates show little change since the last exam. No pneumothorax. Trace LEFT basal pleural effusion. Bony structures are intact. Questionable sm all RIGHT apical pleural cap. Likely pleural effusion. IMPRESSION1. Left-sided PICC line, ET tube and enteric tube all in satisfactory location. 2. Diffuse airspace and interstitial infiltrates more prevalent on the RIGHT than the LEFT. Acute pulmonary edema is considered likely. Superimposed pneumonia also a possibility.
[2025-09-06 10:10] LABS: Troponin 5 6HR 1701 ng/L (0-15); Troponin 5 6HR Delta 1632 ng/L (0-12)
--- NOTE | 2025-09-06 10:12 | PC.NURSE ---
DR PRYOR INFORMED OF 6 HR TROP AND DELTA.
--- NOTE | 2025-09-06 10:46 | PICC.NOTE ---
Triple lumen PICC placed to left basilic vein. Referred to vascular access nurse for PICC placement due to use of vasopressors. Risks and benefits discussed and informed consent obtained from patient's partner, Linnette. Large lipoma noted above right shoulder. Left arm assessed with left basilic vein measuring 5.5 mm, straight, and apparent best choice for placement. Using sterile technique and MST, left basilic vein accessed x 1 stick. Mid-arm circumference measured 10 cm from left AC 25 cm. Trimmed cath 42 cm with 0 cm external length noted. CXR shows tip in distal SVC, in good position for use per radiologist. Line secured with stat-lock. Insertion site covered with Biopatch and TSM. Report given to bedside nurse, RESHMA Andrews.
--- NOTE | 2025-09-06 10:50 | PM.CONSULT ---
Documented by User: Cara Conde NP 09/06/25 14:55 Providers/Reason For Consult Consulting Physician/Specialty*: Dr. Thomas Reason for Consult*: NSTEMI, ACS Requesting Physician: Dr. Hunter Primary Care Provider: Leandro Main DO History of Present Illness History of Present Illness History obtained from family as patient is intubated and sedated. Kel Pagan is a 64 year old male history of hypertension, no diabetes, no smoking, presented to the emergency department with increased shortness of breath. Patient was critically ill on arrival. Apparently she states he has been complaining of chest pains on and off for a long time but they went away quickly. The ED reported at the time he said he had shortness of breath and chest and abdominal pain. Shortly after arrival to the ER he became unresponsive with pulseless electric activity and required CPR. After 1 round CPR was terminated as ROSC was achieved. Patient was intubated and is now sedated with propofol. EKG showed tachycardia a tachycardia rates of 140s. Patient had marked hypertension 190s/30s. Elevated LFTs, increased glucose, elevated proBNP, increased WVC, pulmonary vascular congestion/possible pneumonia. Administration of labetolol was given and bp is now controlled. He is now on Levo. Initial trop was 69. Repeat Trop was 1632. Cardiology and pulmonology was consulted. Review of Systems Narrative: ROS unable to be obtained due to patient intubated and sedated Medications/Allergies Home Medications ?Medication ?Instructions ?Recorded ?Confirmed ?Last Taken ?Type aspirin 325 mg tablet (Karmen 325 mg PO PRN 09/06/25 09/06/25 09/05/25 History Aspirin) Allergies Allergy/AdvReac Type Severity Reaction Status Date / Time No Known Allergies Allergy Verified 09/06/25 02:24 Current Medications Generic Name Dose Route Start Last Admin Trade Name Freq PRN Reason Stop Dose Admin Fentanyl 1,000 mcg in 100 mls @ 0 mls/hr 09/06/25 02:45 09/06/25 06:40 Sublimaze IV 75 mcg/hr .Q0M DEBORA 7.5 mls/hr Protocol Titration Per Protocol Propofol 1,000 mg in 100 mls @ 0 mls/hr 09/06/25 02:45 09/06/25 08:27 Diprivan IV 25 mcg/kg/min .Q0M DEBORA 8.07 mls/hr Protocol Titration Per Protocol Norepinephrine Bitartrate 4 mg in 250 mls @ 0 mls/hr 09/06/25 04:15 09/06/25 08:05 Levophed IV 12 mcg/min .Q0M DEBORA 45 mls/hr Protocol Titration Per Protocol Insulin Human Lispro 0 unit 09/06/25 08:00 09/06/25 08:21 Insulin Lispro 100 Unit/1 Ml SUBCUT Not Given WM&BEDTIME [facility] Protocol PFSH Acute PFSH: Medical History (Updated 09/06/25 @ 18:35 by Jarrod Thomas MD) Septic shock Vitals/I&O/Wt Last Vital Signs Temp 97.6 F 09/06/25 08:18 Pulse 83 09/06/25 09:51 Resp 20 H 09/06/25 08:42 BP 121/90 09/06/25 09:51 Pulse Ox 100 09/06/25 09:51 O2 Del Method Mechanical Ventilation 09/06/25 09:51 FiO2 40 09/06/25 08:42 09/05/25 09/06/25 09/06/25 22:59 06:59 14:59 Intake Total 1324.796 / 1324.796 90.547 / 90.547 Balance 1324.796 / 1324.796 90.547 / 90.547 Weight last 48 hrs Weight 118 lb 9.6 oz Physical Exam Narrative: General: intubated, sedated Respiratory: Normal respiratory effort, decreased breath sounds bilateral lower lobes, no use of accessory muscles Cardio: No JVD, regular rate, regular rhythm, S1 S2 normal, no murmurs, peripheral pulses 2+ radial palpated bilaterally GI: Normal to inspection, nondistended Extremities: Full ROM, normal, no cyanosis or edema Neuro: intubated, sedated Skin: No rashes or lesions noted, no wounds Urinary Catheter Management: Ledezma: Cath Placed During This Visit: yes Reason for Continuing Indwelling Catheter: Accurate Measurement of Urinary Output in Critically Ill Patients Urinary Catheter Date of Insertion: 09/06/25 Urinary Catheter Time of Insertion: 04:30 Data 09/06/25 02:45 09/06/25 02:45 Micro: Microbiology 09/06/25 04:30 Blood Culture - Preliminary Blood SPECIMEN COLLECTED 09/06/25 04:16 Blood Culture - Preliminary Blood SPECIMEN COLLECTED A&P Assessment and plan 1. Cardiac arrest: 2. Heart failure: 3. Pneumonia: 4. Respiratory failure: 5. Shock: Plan: At this time, patient's has in troponin with chest pain, s/p CPR, CHF, NSTEMI, right bundle branch block, with increased troponins with most likely ACS. Our recommendation is to diurese and take patient to the clinical laboratory medical director once fluid is removed for angiogram with possible PCI. After an extensive discussion with the family members, they have stated that patient would not want this and is a DNR. They would like medical management only at this time, but they will think about this and discuss it further in the future. CHF- lasix 40 BID, closely follow I&O as well as renal function, titrate to patient's response, echo obtained NSTEMI- Recommend Heparin drip, at this time patient's family decline angiogram as educated but will continue to think about this, continue medical therapy at this time. Shock-continue levophed to keep a map of 65 Thank you, Dr. Jay, for allowing us to care for this very pleasant 64 year old gentleman. PDMP PDMP Reviewed: Not Reviewed Consult Attestations Medical Necessity Statement: Deferred to primary Coding Level of Care Code Acute Code for [facility] Diagnoses Cardiac arrest I46.9 Heart failure I50.9 Pneumonia J18.9 Respiratory failure J96.90 Shock R57.9 Documented by User: Jarrod Thomas MD 09/06/25 18:44 Medications/Allergies Home Medications ?Medication ?Instructions ?Recorded ?Confirmed ?Last Taken ?Type aspirin 325 mg tablet (Karmen 325 mg PO PRN 09/06/25 09/06/25 09/05/25 History Aspirin) Allergies Allergy/AdvReac Type Severity Reaction Status Date / Time No Known Allergies Allergy Verified 09/06/25 02:24 PFSH Acute PFSH: Medical History (Updated 09/06/25 @ 18:35 by Jarrod Thomas MD) Septic shock Physical Exam Urinary Catheter Management: Ledezma: Cath Placed During This Visit: yes Data 09/06/25 02:45 09/06/25 02:45 A&P Assessment and plan 1. Cardiac arrest: PEA arrest status post brief CPR and ROSC achievement 2. Heart failure: 3. Pneumonia: 4. Respiratory failure: 5. Shock: Plan: Patient presented with respiratory distress, twelve-lead EKG is not suggestive of ST elevation NE but right bundle branch block patient has been ruled in for acute coronary syndrome, he appeared to be volume overloaded but mixed picture of pulmonary injury/infection. Differential diagnosis acute coronary syndrome nonischemic cardiomyopathy pulmonary insult injury including pneumonia and sepsis We recommend left heart catheterization with patient family refused as patient would not like to be resuscitated as per patient wishes. Detailed discussion with the patient his life partner daughter and granddaughter at the bedside they are all of the opinion that no invasive strategy should be adopted we will therefore continue to manage him medically We recommend IV diuresis with diuretics with Lasix 40 mg twice daily Urgent echocardiogram to assess LV function Antibiotics as per medicine Add pressors for shock IV heparin as per ACS protocol Further plan will be advised as per progress of the patient Thank you, Dr. Jay, for allowing us to care for this very pleasant 64 year old gentleman. PDMP PDMP Reviewed: Not Reviewed Coding Level of Care Code Acute Code for [facility] Diagnoses Cardiac arrest I46.9 Heart failure I50.9 Pneumonia J18.9 Respiratory failure J96.90 Shock R57.9
[2025-09-06] MEDS: norepinephrine 4 MG/250 ML BAG 12 MG IV (11:17)
--- NOTE | 2025-09-06 12:59 | ECG_ITS ---
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 Measurements Intervals [place] Rate: 78 P: 73 FL: 146 QRS: 24 QRSD: 77 T: 145 QT: 393 QTc: 448 Interpretive Statements SINUS RHYTHM POSSIBLE RIGHT ATRIAL ENLARGEMENT [0.25mV P-WAVE] LEFT VENTRICULAR HYPERTROPHY AND ST-T CHANGE [VOLTAGE CRITERIA PLUS ST/T ABNORMALITY] POSSIBLE SEPTAL MYOCARDIAL INFARCTION , OF INDETERMINATE AGE [30 ms Q WAVE IN V1/V2] Compared to ECG 09/06/2025 03:19:07 Left ventricular hypertrophy now present ST (T wave) deviation now present Myocardial infarct finding now present.Sinus tachycardia no longer present Short FL interval no longer present. Indeterminate axis no longer present Right bundle-branch block no longer present Electronically Signed On 09-06-2025 23:48:41 [employer] by Patel Ramos M.D. [email or web address]
[2025-09-06] MEDS: heparin drip 25,000 UNIT/500 ML PREMIX 13.68 UNIT IV (13:27)
[2025-09-06] MEDS: midazolam hcl 100 MG/100 ML BAG IV (13:41)
--- NOTE | 2025-09-06 13:54 | PC.NURSE ---
Patient arrived to ICU, on vent, noticed telemetry changes, Called Dr. Olivarez and Dr. Thomas, received verbal orders to start heparin gtt, 12 lead EKG, Lasix BID, and stop lovenox, orders placed, See MAR. Also received orders for different sedation medication to wean pressor requirements, see MAR.
[2025-09-06 14:19] LABS: Troponin T (5th) Once 1889 ng/L (0-15)
--- NOTE | 2025-09-06 14:48 | PC.NURSE ---
Wasted Propofol witnessed by Refugio JUSTICE
[2025-09-06 16:11] LABS: ABG PCO2 26.7 mmHg (35-45); ABG PH Result 7.49 (7.35-7.45); Alveolar-Arterial Oxygen Gradi 13.0 mmHg (5-10); Arterial Blood Gas Hematocrit 44.8 % (42-52); Blood Gas Allen Test Pos; Blood Gas Operator Identificat CAK; Blood Gas Sample Site Radial, left; Blood Gas Sample Type Arterial; Blood Gas Tidal Volume 0.45; Carboxyhemoglobin 0.6 %THgb (0.4-20.1); Glucose Level-ABG 120.0 mg/dL (70-115); HCO3 ABG 20.4 mmol/L (22-26); Ionized Calcium Level - ABG 1.1 mmol/L (1.1-1.4); Methemoglobin 1.1 % (0.4-1.5); Oxygen Saturation ABG 97.1; PEEP 8.0 cmH20; PO2 ABG 79.3 mmHg (80.0-100.0); PO2 FiO2 Ratio Arterial Blood 264; Potassium Level - ABG 3.5 mmol/L (3.5-5.0); Sodium Level - ABG 142.0 mmol/L (131-143)
[2025-09-06] MEDS: FUROsemide 10 mg/mL SDV 4mL 40 MG IVP (16:59)
[2025-09-06] MEDS: potassium chloride oral liq 20 mEq/15 mL UDC OG-TUBE (17:08)
[2025-09-06] MEDS: fentaNYL 1,000 MCG/100 ML BAG 7.5 MCG IV (17:28)
[2025-09-06] MEDS: norepinephrine 4 MG/250 ML BAG 22.5 MG IV (19:57)
[2025-09-06 21:54] LABS: Partial Thromboplastin Time 69.6 SECONDS (23.9-36.7)
[2025-09-06] MEDS: chlorhexidine gluconate 4% Btl 118 mL 1 APPLIC TOPICAL (23:16)
[2025-09-07] VITALS (191 sets, daily range): BP systolic 73–215; BP diastolic 51–155; PULSE 55–150; RESP 9–28; TEMP 36.2–37.2; O2SAT 71–100; BMI 19.3
[2025-09-07] MEDS: cefTRIAXone 1,000 mg SDV 1000 MG IVP (02:08)
[2025-09-07] MEDS: FUROsemide 10 mg/mL SDV 4mL 40 MG IVP (04:31)
[2025-09-07] MEDS: potassium chloride oral liq 20 mEq/15 mL UDC OG-TUBE (04:32)
[2025-09-07] MEDS: fentaNYL 1,000 MCG/100 ML BAG 5 MCG IV (05:30)
--- NOTE | 2025-09-07 05:32 | PC.NURSE ---
Addendum entered by KEDAR Gongora 09/07/25 05:35: Witnessed 10ml fentanyl waste. Original Note: Wasted 10 ml of fentanyl with RESHMA Barron.
[2025-09-07 06:21] LABS: Hematocrit 38.4 % (37-53); Hemoglobin 12.50 g/dL (11.27-16.99); Mean Corpuscular HGB Conc 32.6 g/dL (30-55); Mean Corpuscular Hemoglobin 26.9 pg (27-33); Mean Corpuscular Volume 82.8 fl (82-101); Nucleated Red Blood Cells % 0 %; Platelet Count 402 10^3/cmm (157-399); Red Blood Count 4.64 10^6/uL (3.85-5.65); White Blood Count 11.97 10^3/uL (3.29-11.43)
[2025-09-07 06:36] LABS: Alanine Aminotransferase 27 U/L (0-41); Albumin Level 3.0 g/dL (3.5-5.2); Alkaline Phosphatase 59 U/L (40-130); Anion Gap 17.3 (5-19); Aspartate Amino Transferase 58 U/L (0-40); Blood Urea Nitrogen 19 mg/dL (8-23); Calcium 8.0 mg/dL (8.5-10.5); Carbon Dioxide 21 mmol/L (22-29); Chloride 109 mmol/L (98-107); Globulin 2.0 g/dL (1.3-4.6); Glucose 114 mg/dL (65-115); Osmolality Calculated 301 mOsm/kg (285-295); Potassium 3.3 mmol/L (3.5-5.1); Sodium 144 mmol/L (136-145); Total Protein 5.0 g/dL (6.6-8.7)
[2025-09-07 06:53] LABS: Partial Thromboplastin Time 58.8 SECONDS (23.9-36.7)
--- NOTE | 2025-09-07 08:07 | P.PN_ITS ---
Subjective 2 Medications: Medication Review Details: Kel Pagan is a 64 year old male with pmhx of htn was brought in by family with complains of shortness of breath, was intubated urgently after having a PEA cardiac arrest. Had one round of epi and regained ROSC [place]. Currently on 12 of levo, fentanyl 75 mcgs and propofol 25. on vent at AC- 450 ml/8 of peep/40% fio2. Was given 1L NS in ER for sepsis bolus 09/28 fio-35%. wakes up but not following commands. prop off, fentanyl 50, versed 2. off levo. ROS: unobtainable on vent Vitals/I&O/Wt Last Vital Signs Temp 99.0 F 09/07/25 05:39 Pulse 72 09/07/25 07:00 Resp 16 09/07/25 07:31 BP 95/57 09/07/25 07:00 Pulse Ox 100 09/07/25 07:31 O2 Del Method Mechanical Ventilation 09/06/25 12:30 FiO2 35 09/07/25 07:31 09/06/25 09/07/25 09/07/25 22:59 06:59 14:59 Intake Total 385.861 / 1698.069 563.295 / 2261.364 Output Total 300 / 300 850 / 1150 Balance 85.861 / 1398.069 -286.705 / 1111.364 Weight last 48 hrs Weight 159 lb 13.362 oz Weight 125 lb 10.616 oz Weight 125 lb 10.616 oz Weight 118 lb 9.6 oz Physical Exam 2 Narrative: Per RN Gen: Intubated, sedated HEENT: EOMI Pulmonary: diminished bilaterally Cardiovascular: rrr, nl s1s2, Abdomen: soft, nt, nd, no r/g, Extremities: no edema Neurologic: grossly normal Agree with above exam Urinary Catheter Management: Ledezma: Cath Placed During This Visit: yes Reason for Continuing Indwelling Catheter: Accurate Measurement of Urinary Output in Critically Ill Patients Urinary Catheter Date of Insertion: 09/06/25 Urinary Catheter Time of Insertion: 04:30 Data 09/07/25 04:38 09/07/25 04:38 Micro: Microbiology 09/06/25 04:30 Blood Culture - Preliminary Blood NEGATIVE TO DATE 09/06/25 04:16 Blood Culture - Preliminary Blood NEGATIVE TO DATE 09/06/25 07:45 Gram Stain - Final Sputum - Endotracheal Tube Aspirate 2 ABG's: ABG pH, (7.35-7.45) 7.49 H 09/06/25, 16:00 ABG pCO2, (35-45) 26.7 mmHg L 09/06/25, 16:00 ABG pO2, (80.0-100.0) 79.3 mmHg L 09/06/25, 16:00 ABG PO2/FiO2 Ratio 264 09/06/25, 16:00 ABG HCO3, (22-26) 20.4 mmol/L L 09/06/25, 16:00 ABG O2 Saturation 97.1 09/06/25, 16:00 ABG Base Excess, (-2.0-2.0) -1.4 mmol/L 09/06/25, 16 :00 A-a O2 Gradient, (5-10) 13.0 mmHg H 09/06/25, 16:00 Hematocrit, (42-52) 44.8 % 09/06/25, 16:00 Hgb O2 Saturation, (95-100) 95.4 % 09/06/25, 16 :00 Carboxyhemoglobin, (0.4-20.1) 0.6 %THgb 09/06/25, 16:00 Methemoglobin, (0.4-1.5) 1.1 % 09/06/25, 16:00 Total Hemoglobin, (14-18) 14.6 g/dL 09/06/25, 16:0 0 Ionized Calcium, (1.1-1.4) 1.1 mmol/L 09/06/25, 16: 00 O2 Delivery Device Vent 09/06/25, 16:00 FiO2 30.0 % 09/06/25, 16:00 Tidal Volume 0.45 09/06/25, 16:00 PEEP 8.0 cmH20 09/06/25, 16:00 2 Ventilation Settings: Ventilator Support Mode VC/AC Today, 13:56 Ventilator Tidal Volume Setting 450 ml/kg Today, 1 3:56 Ventilator Respiratory Rate Setting 16 breaths/min Toda y, 13:56 Peak Inspiratory Airway Pressure 16 cmH2O Today, 13:56 Plateau Pressure 15 cm H2O2 Today, 07:31 Respiratory Cycle Inspiratory:Expiratory Ratio 1.0 Today, 13:56 Auto Peep 0 cm H2O Today, 07:31 Positive End Expiratory Pressure 8 cm H2O Today, 13:56 Flow Auto Today, 13:56 Fraction of Inspired Oxygen 10 Today, 17:01 Additional Comments 2 lpm, extubated per comfort care Today, 15:38 A&P Assessment and plan 1. Septic shock: 2. Pneumonia: Plan: # Acute respiratory failure POA Continue vent support and wean as tolerated Maintain sats around 92% Daily SBTs plan to extubate today or tomorrow based on family discussions. Discussed case with Dr. Olivarez. Bronchopulmonary hygiene, bronchodilator therapy # Bilateral pneumonia I reviewed the CT myself, interpretted findings independently Has bilateral pneumonia with air bronchograms Cover with ceftriaxone and zithromax Sputum cx pending-negative to date 07/29 # Septic shock- POA Off pressors-resolved # Acute metabolic acidosis # PEA cardiac arrest - Echocardiogram pending # Probable Lingular PE Heparin drip continue # Transaminitis Most likely secondary to shock # Acute CHF Avoid lasix for now. Monitor urine output and creatinine # Secondary polycythemia # Thrombocytosis # Hypokalemia-3.3 today Continue replacement protocol # Increased troponins- probable NSTEMI Patient declined cath Cardiology following, appreciate help # Hyperglycemia-insulin sliding scale medium. Avoid hypoglycemia. Maintain blood sugars between 140-180. Dextrose drip if needed # Sedation-continue Propofol gtt and fentanyl drip for now. # Nutrition- NPO, monitor BMs # DVT GI prophylaxis-SCDs and famotidine. heparin gtt # Goals of care-discussed with primary team. Family is contemplating to trial extubation versus comfort care. # CODE STATUS- DNR # Disposition-Will need full ICU support follow-up The high probability of a clinically significant, sudden or life threatening deterioration of the patient's [Respiratory, cardiac and renal] system(s) required my full and direct attention, intervention and personal management. The critical care time is as shown. This time is in addition to time spent performing any reported procedures but includes the following: [x] Data and vital sign review and interpretation [x] Patient assessment, examination and intervention [x] Documentation [x] Medication orders and management Critical Care Time (min): 32 Telemedicine Consent Patient seen today via Telemedicine by agreement and consent of patient.? Telemedicine technology used during the visit includes audio and, as available, review of images.? The patient encounter is appropriate and reasonable under the circumstances given the patient?s particular presentation at this time.? The patient has been advised of the potential risks and limitations of this mode of treatment (including but not limited to the absence of in-person examination) and has agreed to be treated in a remote fashion in spite of them.? Any, and all, of the patient?s/patient?s family?s questions on this issue have been answered and I have made no promises or guarantees to the patient. PDMP PDMP Reviewed: Not Reviewed Attestations 2 Medical Necessity Statement*: On mechanical ventilation Coding Level of Care Code Critical Care >/= 30 minutes Diagnoses Septic shock A41.9; R65.21 Pneumonia J18.9
[2025-09-07] MEDS: dexmedeTOMIDine 0.9 % NaCL 400 MCG/100 ML PREMIX IV (08:40)
--- NOTE | 2025-09-07 09:22 | XR_ITS ---
WS: [id number] Exam: XR chest 1V portable [id number] Date/Time of Exam: 09/07/2025 9:32 AM Reason For Exam: sob Comparison 09/06/2025. There is been no significant improvement of bilateral pulmonary infiltrates since the prior study. The lungs are fully expanded. No pleural effusion. There may be some atelectasis or possible infiltrate remaining in the LEFT lower lobe. Heart size is normal. Left-sided PICC line remains in satisfactory location. ET tube ends about 3 cm above the paulette in good position. Enteric tube below the diaphragm. XR/XR chest 1V portable [id number] IMPRESSION: 1. Pulmonary infiltrates show significant improvement since prior study. There is still probably some atelectasis and possibly some infiltrate in the LEFT low er lobe. 2. Left-sided PICC line, ET tube and enteric tube all in satisfactory location.
[2025-09-07] MEDS: potassium chloride premix 100 ML 26.25 MEQ IV (09:58)
[2025-09-07 10:11] LABS: Lactate (Lactic Acid level) 1.9 mmol/L (0.5-2.2)
--- NOTE | 2025-09-07 10:36 | P.PN_ITS ---
Documented by User: Cara Conde NP 09/07/25 14:33 Subjective 2 Subjective: Patient seen this morning at bedside. X-ray significantly improved. Patient is back on Levo this AM. Family at bedside. Patient has been made DNR. Vitals/I&O/Wt Last Vital Signs Temp 97.8 F 09/07/25 08:30 Pulse 70 09/07/25 10:05 Resp 16 09/07/25 10:00 BP 130/86 09/07/25 10:05 Pulse Ox 100 09/07/25 10:05 O2 Del Method Mechanical Ventilation 09/07/25 10:05 FiO2 35 09/07/25 10:00 09/06/25 09/07/25 09/07/25 22:59 06:59 14:59 Intake Total 385.861 / 1698.069 563.295 / 2261.364 8.383 / 8.383 Output Total 300 / 300 850 / 1150 Balance 85.861 / 1398.069 -286.705 / 1111.364 8.383 / 8.383 Weight last 48 hrs Weight 127 lb 6 oz Weight 159 lb 13.362 oz Weight 125 lb 10.616 oz Weight 125 lb 10.616 oz Weight 118 lb 9.6 oz Physical Exam 2 Narrative: General: intubated, sedated Respiratory: Normal respiratory effort, decreased breath sounds bilateral lower lobes, no use of accessory muscles Cardio: No JVD, regular rate, regular rhythm, S1 S2 normal, no murmurs, peripheral pulses 2+ radial palpated bilaterally GI: Normal to inspection, nondistended Extremities: Full ROM, normal, no cyanosis or edema Neuro: intubated, sedated Skin: No rashes or lesions noted, no wounds Urinary Catheter Management: Ledezma: Cath Placed During This Visit: yes Reason for Continuing Indwelling Catheter: Accurate Measurement of Urinary Output in Critically Ill Patients Urinary Catheter Date of Insertion: 09/06/25 Urinary Catheter Time of Insertion: 04:30 Data 09/07/25 04:38 09/07/25 04:38 Micro: Microbiology 09/06/25 04:30 Blood Culture - Preliminary Blood NEGATIVE TO DATE 09/06/25 04:16 Blood Culture - Preliminary Blood NEGATIVE TO DATE 09/06/25 07:45 Gram Stain - Final Sputum - Endotracheal Tube Aspirate A&P Assessment and plan 1. Cardiac arrest: 2. Heart failure: 3. Respiratory failure: 4. Shock: 5. Hypernatremia: Plan: Patient is now DNR and family at bedside stating they only wish to continue medical management despite recommendation for LHC. Will continue heprin dripx48 hours Will continue medical management and decrease lasix to 40 mg daily as patient has responded well, x-ray much improved, but sodium coming up slightly. Will titrate lasix to patient's response. Wean levo as tolerated. Potassium is being replenished IV. Continue medical management per hospitalist team. PDMP PDMP Reviewed: Not Reviewed Attestations 2 Medical Necessity Statement*: Deferred to primary. Coding Level of Care Code Acute Code for Chg Fwd Diagnoses Cardiac arrest I46.9 Heart failure I50.9 Respiratory failure J96.90 Shock R57.9 Hypernatremia E87.0 Documented by User: Jarrod Thomas MD 09/07/25 17:34 Physical Exam 2 Urinary Catheter Management: Ledezma: Cath Placed During This Visit: yes Data 09/07/25 04:38 09/07/25 04:38 A&P Assessment and plan 1. Cardiac arrest: 2. Heart failure: 3. Respiratory failure: 4. Shock: 5. Hypernatremia: Plan: Patient remains DNR and family at bedside stating they only wish to continue medical management despite recommendation for LHC. Will continue heprin dripx48 hours Will continue medical management and decrease lasix to 40 mg daily as patient has responded well, x-ray much improved, sodium has increased/hypernatremia. Will titrate lasix to patient's response. Wean levo as tolerated. Potassium is being replenished IV. If needed may can use dextrose for hypernatremia, continue medical management per hospitalist team. If hypernatremic got worse will stop diuretics. PDMP PDMP Reviewed: Not Reviewed Attestations 2 Medical Necessity Statement*: Patient require continuation of hospitalization for above defined care Coding Level of Care Code Acute Code for Chg Fwd Diagnoses Cardiac arrest I46.9 Heart failure I50.9 Respiratory failure J96.90 Shock R57.9 Hypernatremia E87.0
--- NOTE | 2025-09-07 12:36 | PC.NURSE ---
Family called this nurse to bedside, patient is minimally awake follows some commands, but in lethargic. Fentanyl at 25mcg/hr now off. Family states patient does not want to be on ventilator and that they want patient extubated now. Dr. Olivarez notified immediately via telephone.
--- NOTE | 2025-09-07 13:28 | PC.NURSE ---
Dr. Olivarez at bedside to speak with family. Billie Mata, Annabelle Pagan, and Linnette Pagan at bedside expressed they wanted patient extubated. Billie states that patient would not and did not want to be on a ventilator or any type of resuscitation. Dr Olivarez discussed Code status with these family members. Extensive education provided to family at this time by on patient condition and possible outcomes. Case management at bedside as well as this nurse.
--- NOTE | 2025-09-07 14:05 | PC.NURSE ---
Family declined dog day care attendant services.
--- NOTE | 2025-09-07 14:42 | PC.NURSE ---
Addendum entered by KEDAR Diaz 09/07/25 15:31: [employer] of [facility] called charge nurse, Fabby JUSTICE, and gave okay to extubate. Addendum entered by KEDAR Diaz 09/07/25 15:16: Spoke with Samantha at [facility] who is contacting her technical administrator. Advised that patient family is requesting to proceed with extubation orders, now. Original Note: Per protocol, [facility] notified.
[2025-09-07] MEDS: morphine 4 mg/mL SDV 1 mL IVP ×2 (14:54→15:55)
[2025-09-07] MEDS: LORazepam 2 mg/mL INJ 1 mL IVP (14:55)
[2025-09-07 14:56] LABS: Partial Thromboplastin Time 89.1 SECONDS (23.9-36.7)
--- NOTE | 2025-09-07 15:00 | P.PN_ITS ---
Subjective 2 Subjective: 64-year-old male admitted to ICU after c ardiac arrest Currently intubated and sedated Noted to have a non-STEMI Family at bedside. Daughters and partner report that patient would not want to be on ventilator. And requesting extubation. Vitals/I&O/Wt Last Vital Signs Temp 97.8 F 09/07/25 08:30 Pulse 103 H 09/07/25 14:00 Resp 12 09/07/25 14:54 BP 131/91 09/07/25 14:00 Pulse Ox 100 09/07/25 14:54 O2 Del Method Mechanical Ventilation 09/07/25 14:00 FiO2 35 09/07/25 13:56 09/07/25 09/07/25 09/07/25 06:59 14:59 22:59 Intake Total 563.295 / 2261.364 140.049 / 140.049 Output Total 850 / 1150 600 / 600 Balance -286.705 / 1111.364 -459.951 / -459.951 Weight last 48 hrs Weight 57.776 kg Weight 72.5 kg Weight 57 kg Weight 57 kg Weight 53.796 kg Physical Exam 2 Const: OTHER: Intubate sedated Eye: OTHER: Injected conjunctiva. PERRLA, spontaneous eye movements noted Resp: OTHER: Clear to anterior auscultation. On mechanical ventillations Cardio: OTHER: RRR. No MGR. No peripheral edema GI: OTHER: Saw no masses : OTHER: Ledezma catheter present draining yellow colored urine Extremity: OTHER: Cold distal extremities. Appear mottled. Neuro: OTHER: Sedated. Mild non-purposeful mouth twitches noted Skin: OTHER: No breaks in the skin observed Urinary Catheter Management: Ledezma: Cath Placed During This Visit: yes Reason for Continuing Indwelling Catheter: Accurate Measurement of Urinary Output in Critically Ill Patients Urinary Catheter Date of Insertion: 09/06/25 Urinary Catheter Time of Insertion: 04:30 Data 09/07/25 04:38 09/07/25 04:38 Micro: Microbiology 09/06/25 07:45 Gram Stain - Final Sputum - Endotracheal Tube Aspirate Sputum Culture - Preliminary 09/06/25 04:16 Urine Culture - Preliminary Urine,Clean Catch 09/06/25 04:30 Blood Culture - Preliminary Blood NEGATIVE TO DATE 09/06/25 04:16 Blood Culture - Preliminary Blood NEGATIVE TO DATE A&P Assessment and plan 1. Cardiac arrest: 2. Septic shock: 3. Respiratory failure: Plan: Status post cardiac arrest Respiratory failure on vent Pneumonia/septic shock Heart failure Plan: Met with family multiple times today. We did discuss benefits of keeping him intubated on vent support for another day. They were adamant that this was not what he wanted. They report that they want him to be extubated. Did discuss with consultants. Plan extubation today. Continue pressors and antibiotics. Will see how he does. Will continue morphine Ativan. Will follow closely. May transition to comfort care soon PDMP PDMP Reviewed: Not Reviewed Attestations 2 Medical Necessity Statement*: Vent support Coding Level of Care Code 18855 Diagnoses Cardiac arrest I46.9 Septic shock A41.9; R65.21 Respiratory failure J96.90
--- NOTE | 2025-09-07 15:24 | PC.NURSE ---
Extubation: Family requests extubation NOW, awaiting MTS, At 1526 patient extubated to [place] with RT, RN and family at bedside.
--- NOTE | 2025-09-07 15:47 | PC.NURSE ---
Called Dr. Olivarez to clarify comfort care orders as many non comfort orders remain. Patient HR in 140's verbal telephone order received for metoprolol. Is to review chart and clarify contradicting orders.
[2025-09-07] MEDS: metoprolol tartrate 1 mg/1 mL SDV 5 mL 5 MG IVP (15:51)
--- NOTE | 2025-09-07 16:37 | PC.NURSE ---
Dr. Olivarez called to assess patient due to oxygen in 70's. Dr. Olivarez asked this nurse to call RT, this nurse asked for orders for bipap, Dr. Olivarez states RT will assess for need. RT states orders are for comfort measures. Family states they will be okay with non invasive measures like a bipap.
--- NOTE | 2025-09-07 17:02 | PC.RESP ---
Verbal orders received over phone to try heated high flow. If heated high flow did not work then to placed pt on bipap.
--- NOTE | 2025-09-07 17:09 | PC.NURSE ---
Dr Olivarez, at bedside. Chela and I round with him and Pt's daughter Billie on pt's care. Per Dr Olivarez's conversation with Billie we will conitue with the Heated high flow. Per Dr Foss she thought he was doing better yesterday. If pt should take a turn for the worse tonight we will consider comfort care
[2025-09-07] MEDS: heparin drip 25,000 UNIT/500 ML PREMIX 11.56 UNIT IV (17:39)
--- NOTE | 2025-09-07 19:18 | PC.NURSE ---
Addendum entered by Catrachita Vargas RN 09/07/25 19:49: Witnessed waste Original Note: Waste: Waste of remaining versed and fentanyl with RESHMA Domínguez.
[2025-09-07 20:06] LABS: Partial Thromboplastin Time 69.8 SECONDS (23.9-36.7)
--- NOTE | 2025-09-07 21:13 | ECG_ITS ---
[facility]: [facility] Pat Name: Kel Pagan Department: Room: ICU12 Gender: Male [employer] Supervisor: : 1960 Requested By: Checo Foss Order Number: [id number] Sincere MD: Patel Ramos M.D. Measurements Intervals Edwards Rate: 136 P: 59 NE: 142 QRS: -4 QRSD: 83 T: 127 QT: 259 QTc: 390 Interpretive Statements SINUS TACHYCARDIA LEFT VENTRICULAR HYPERTROPHY AND ST-T CHANGE [VOLTAGE CRITERIA PLUS ST/T ABNORMALITY] POSSIBLE SEPTAL MYOCARDIAL INFARCTION , OF INDETERMINATE AGE [30 ms Q WAVE IN V1/V2] Compared to ECG 09/06/2025 13:00:37 Sinus rhythm no longer present ST (T wave) deviation still present Myocardial infarct finding still present Electronically Signed On 09-08-2025 18:47:31 [employer] by Patel Ramos M.D. [email or web address]
[2025-09-07] MEDS: morphine 4 mg/mL SDV 1 mL 2 MG IVP (21:26)
--- NOTE | 2025-09-07 21:35 | PC.NURSE ---
Physician Communication At approximately 2114, Patient's heart rate elevated into the 130-140s with a blood pressure of 207/143 and an oxygen saturation of 87% on HHF 60L 100%. Patient's respiratory effort unlabored at this time. Dr. Jay contacted; order received for bipap and to administer active PRN morphine if patient's respiratory effort increases. At about 2124, patient's respiratory effort did increase with abdominal muscle use. Lungs auscultated revealing absent sounds on the left side with crackles still audible on the right. Patient's trachea noted to be slightly different than prior. Dr. Jay notified and order for stat chest xray obtained. Morphine administered per DEC. Bipap in room with RT awaiting chest xray results.
--- NOTE | 2025-09-07 21:37 | XRR_ITS ---
PROCEDURE INFORMATION: Exam: XR Chest Exam date and time: 09/07/2025 10:57 PM Age: 64 years old Clinical indication: Other: Absence of lung sounds in lt lung; Additional info: Hypoxia TECHNIQUE: Imaging protocol: Radiologic exam of the chest. Views: 1 view. COMPARISON: CR XR chest 1V portable [id number] 09/07/2025 10:44 AM FINDINGS: Tubes, catheters and devices: Left-sided PICC. Lungs: There is near-complete opacification of the left hemithorax with areas of aeration remaining at the left lung apex. This may relate to postobstructive atelectasis versus large pleural effusion with adjacent compressive atelectasis or infiltrate. The right lung demonstrates interstitial and hazy airspace opacities greatest in the right lung base. Pleural spaces: See Lungs finding. Heart/Mediastinum: There is mediastinal shift to the left. Bones/joints: Unremarkable. XR/XR chest 1V portable [id number] IMPRESSION: Near-complete opacification of the left hemithorax and given the fact that there is mediastinal shift to the left this may be due to postobstructive atelectasis. Can not exclude pleural effusion with adjacent compressive atelectasis or infiltrates. Additional infiltrates in the right lung base and interstitial prominence.
--- NOTE | 2025-09-07 22:30 | PC.NURSE ---
Comfort Care Chest xray resulted. Linnette Pagan at bedside, stating I think he is tired, he acts tired. I just want him to be comfortable. Comfort care discussed. Linnette stated that her and patient's daughters had agreed upon comfort care in the case of decline. Dr. Jay notified; orders received for comfort care measures.
[2025-09-08] VITALS (30 sets, daily range): BP systolic 176–197; BP diastolic 104–134; PULSE 111–149; RESP 14–22; TEMP 36.8; O2SAT 85–94
[2025-09-08] MEDS: ondansetron 2 mg/ML SDV 2 mL 4 MG IVP (04:18)
[2025-09-08] MEDS: glycopyrrolate 0.2 mg/mL SDV 2 mL IV ×2 (04:18→09:07)
[2025-09-08] MEDS: morphine 4 mg/mL SDV 1 mL IVP ×2 (04:28→20:41)
[2025-09-08] MEDS: atropine 1% op soln 2 mL Btl 3 DROP SUBLINGUAL ×3 (04:34→18:28)
--- NOTE | 2025-09-08 10:00 | PC.NURSE ---
Report given to [facility] floor, patient transport via bed and transferred to medical floor bed with assistance of patients new nurse. No acute distress noted at time of transfer - patient denies pain.
[2025-09-08] MEDS: morphine 4 mg/mL SDV 1 mL 2 MG IVP (14:09)
--- NOTE | 2025-09-08 14:16 | P.PN_ITS ---
<Statement entered by Jarrod Thomas MD - 09/08/25 18:33> Patient was evaluated and cared for in conjunction with an advanced practice practitioner. I personally examined the patient and reviewed the chart and all pertinent data including imaging, telemetry, and laboratory results. I discussed the patient in detail with the advanced practice practitioner. Please see their note for complete H&P testing result and agreed upon plan of care for the patient. Subjective 2 Subjective: It has been brought to our attention patient has been made comfort care. The family does not want any further interventions. Patient has been extubated. Vitals/I&O/Wt Last Vital Signs Temp 98.2 F 09/08/25 07:00 Pulse 116 H 09/08/25 08:00 Resp 15 09/08/25 14:09 BP 176/104 09/08/25 08:00 Pulse Ox 93 09/08/25 08:00 O2 Del Method Nasal Cannula 09/08/25 08:00 O2 Flow Rate 2 09/08/25 08:00 FiO2 100 09/07/25 21:15 09/07/25 09/08/25 09/08/25 22:59 06:59 14:59 Intake Total 141.998 / 391.259 28.707 / 419.966 0 / 0 Output Total 125 / 725 Balance 141.998 / -208.741 -96.293 / -305.034 0 / 0 Weight last 48 hrs Weight 127 lb 6 oz Weight 159 lb 13.362 oz Weight 125 lb 10.616 oz Physical Exam 2 Narrative: General: extubated Respiratory: Normal respiratory effort, decreased breath sounds bilateral lower lobes, no use of accessory muscles Cardio: No JVD, regular rate, regular rhythm, S1 S2 normal, no murmurs, peripheral pulses 2+ radial palpated bilaterally GI: Normal to inspection, nondistended Extremities: Full ROM, normal, no cyanosis or edema Skin: No rashes or lesions noted, no wounds Urinary Catheter Management: Ledezma: Cath Placed During This Visit: yes Reason for Continuing Indwelling Catheter: Accurate Measurement of Urinary Output in Critically Ill Patients Urinary Catheter Date of Insertion: 09/06/25 Urinary Catheter Time of Insertion: 04:30 Data 09/07/25 04:38 09/07/25 04:38 Micro: Microbiology 09/06/25 07:45 Gram Stain - Final Sputum - Endotracheal Tube Aspirate Sputum Culture - Final 09/06/25 04:16 Urine Culture - Final Urine,Clean Catch A&P Assessment and plan 1. Cardiac arrest: 2. Heart failure: 3. Respiratory failure: 4. Shock: 5. Hypernatremia: Plan: Patient remains DNR and family at bedside stating they only wish to continue comfort care. At this time, cardiology will sign off of this patient. As always, if our assistance is needed in the future, please consult us. Thank you for allowing us to take care of this gentleman. PDMP PDMP Reviewed: Not Reviewed Attestations 2 Medical Necessity Statement*: Deferred to primary Coding Level of Care Code Acute Code for [facility] Diagnoses Cardiac arrest I46.9 Heart failure I50.9 Respiratory failure J96.90 Shock R57.9 Hypernatremia E87.0
--- NOTE | 2025-09-08 20:12 | P.PN_ITS ---
Subjective 2 Subjective: comfort care arousable family at bedside Vitals/I&O/Wt Last Vital Signs Temp 98.2 F 09/08/25 07:00 Pulse 116 H 09/08/25 08:00 Resp 15 09/08/25 14:09 BP 176/104 09/08/25 08:00 Pulse Ox 93 09/08/25 08:00 O2 Del Method Nasal Cannula 09/08/25 08:00 O2 Flow Rate 2 09/08/25 08:00 FiO2 100 09/07/25 21:15 09/08/25 09/08/25 09/08/25 06:59 14:59 22:59 Intake Total 28.707 / 419.966 0 / 0 Output Total 125 / 725 350 / 350 Balance -96.293 / -305.034 0 / 0 -350 / -350 Weight last 48 hrs Weight 57.776 kg Weight 72.5 kg Weight 57 kg Physical Exam 2 Narrative: NAD, arousable, answers some questions Lungs: some adventitoius sounds CVS: tachycardia Abdomen:Soft, MSK: no deformities Urinary Catheter Management: Ledezma: Cath Placed During This Visit: yes Reason for Continuing Indwelling Catheter: Accurate Measurement of Urinary Output in Critically Ill Patients Urinary Catheter Date of Insertion: 09/06/25 Urinary Catheter Time of Insertion: 04:30 Data 09/07/25 04:38 09/07/25 04:38 Micro: Microbiology 09/06/25 07:45 Gram Stain - Final Sputum - Endotracheal Tube Aspirate Sputum Culture - Final 09/06/25 04:16 Urine Culture - Final Urine,Clean Catch A&P Assessment and plan 1. Cardiac arrest: 2. Heart failure: 3. Shock: Plan: 1. comfort care 2. family updates PDMP PDMP Reviewed: Not Reviewed Attestations 2 Medical Necessity Statement*: comfort care Coding Level of Care Code 55589 Diagnoses Cardiac arrest I46.9 Heart failure I50.9 Shock R57.9
[2025-09-08] MEDS: LORazepam 2 mg/mL INJ 1 mL IVP (20:42)
[2025-09-09 08:11] VITALS: RESP 14
[2025-09-09] MEDS: morphine 4 mg/mL SDV 1 mL 2 MG IVP ×2 (08:11→14:48)
[2025-09-09] MEDS: LORazepam 2 mg/mL INJ 1 mL 1 MG IVP ×2 (10:54→15:54)
[2025-09-09] MEDS: morphine 10 mg/0.5 mL oral liq UD SUBLINGUAL ×2 (10:55→16:38)
--- NOTE | 2025-09-09 13:05 | P.PN_ITS ---
Subjective 2 Subjective: comfort care family at bedside Vitals/I&O/Wt Last Vital Signs Temp 98.2 F 09/08/25 07:00 Pulse 116 H 09/08/25 08:00 Resp 14 09/09/25 08:11 BP 176/104 09/08/25 08:00 Pulse Ox 93 09/08/25 20:41 O2 Del Method Nasal Cannula 09/08/25 08:00 O2 Flow Rate 2 09/08/25 08:00 FiO2 100 09/07/25 21:15 09/08/25 09/09/25 09/09/25 22:59 06:59 14:59 Intake Total 0 / 0 Output Total 350 / 350 250 / 600 Balance -350 / -350 -250 / -600 Physical Exam 2 Const: OTHER: nad Chest: OTHER: mild labored breathing GI: OTHER: soft Extremity: OTHER: no edema Urinary Catheter Management: Ledezma: Cath Placed During This Visit: yes Reason for Continuing Indwelling Catheter: Accurate Measurement of Urinary Output in Critically Ill Patients Urinary Catheter Date of Insertion: 09/06/25 Urinary Catheter Time of Insertion: 04:30 Data 09/07/25 04:38 09/07/25 04:38 Micro: Microbiology 09/06/25 07:45 Gram Stain - Final Sputum - Endotracheal Tube Aspirate Sputum Culture - Final 09/06/25 04:16 Urine Culture - Final Urine,Clean Catch A&P Assessment and plan 1. Cardiac arrest: 2. Heart failure: 3. Shock: Plan: 1. comfort care 2. family updates 3. consider GIP PDMP PDMP Reviewed: Not Reviewed Attestations 2 Medical Necessity Statement*: comfort care Coding Level of Care Code Acute Code for [facility] Diagnoses Cardiac arrest I46.9 Heart failure I50.9 Shock R57.9
[2025-09-09 14:48] VITALS: RESP 15
--- NOTE | 2025-09-09 16:37 | PM.DCS ---
Discharge Providers Date of Admission: 09/06/25 11:06 Date of Discharge: September 09, 2025 Attending Provider at Admission: Checo Jay MD Attending Provider at Discharge: Anya Olivarez MD Primary Care Provider: Leandro Main DO Diagnoses at Discharge Discharge Diagnosis 1. Cardiac arrest: 2. Heart failure: 3. Shock: Reason for Visit Reason for Visit: SOB Hospital Course Hospital Course Kel Pagan is a 64 year old male with reported history of hypertension who presented to the ED with complaints of shortness of breath. History is limited to spouse and grandson who are present as the patient is currently intubated. I am told the patient was in his usual state of health last night when he went to sleep and had trouble breathing when laying down. He then went to his couch where his dyspnea continued. By this time, he was having difficulty standing. Family delivered him to the ED where his shortness of breath worsened. His condition overall deteriorated in the ED and a CODE BLUE was called. In discussion with the ED physician, patient was thought to have PEA arrest and underwent 2-4 minutes of resuscitative efforts with ROSC. ED course was complicated by hypertension which was eventually improved with sedation after intubation, hinds catheter placement with release of 1.5L of urine, and labetalol administration. Workup in the ED with imaging suggest community aquired pneumonia and a small PE in the lingula In further discussion with the family, patient had no complaints prior to today. Last seen by his PCP about 3 years ago without reported concerns Hospital course: Patient was made to ICU on vent support. Cardiology ICU doctor consulted. Family reported that they did not feel patient would want to be on a ventilator or want aggressive resuscitation. Kids and reported this. They wanted extubation. As this is what he had told them in the past. Patient was extubated. He declined. He was transition to comfort care. Physical Exam Const: OTHER: nad Chest: OTHER: mild labored breathing GI: OTHER: soft Extremity: OTHER: no edema Urinary Catheter Management: Hinds: Cath Placed During This Visit: yes Reason for Continuing Indwelling Catheter: Accurate Measurement of Urinary Output in Critically Ill Patients Urinary Catheter Date of Insertion: 09/06/25 Urinary Catheter Time of Insertion: 04:30 Discharge Data Studies Completed and Pending Completed Studies During Hospitalization Category Date Time Status CT Angio Chest + Abdomen Pelvis w/ contrast; 88719 + Cat Scan 09/06/25 02:[address] head wo con* 94324 Stat Cat Scan 09/06/25 02:39 Completed CXRP [XR chest 1V portable 76288] Routine Exams 09/07/25 09:22 Completed CXRP [XR chest 1V portable 51940] Stat Exams 09/06/25 09:14 Completed CXRP [XR chest 1V portable 01035] Stat Exams 09/07/25 21:37 Completed XR chest 1V portable 26142 Stat Exams 09/06/25 02:40 Completed CV. echo complete* 85045 Stat Ultrasound 09/06/25 05:22 Completed Pending at discharge Category Date Time Status Blood Culture Stat Lab 09/06/25 04:30 Results CBC Auto Diff [Complete Blood Count w/Auto] AM LABS Lab 09/10/25 04:00 Ordered CBC Auto Diff [Complete Blood Count w/Auto] AM LABS Lab 09/11/25 04:00 Ordered CMP [Comprehensive Metabolic Panel] AM LABS Lab 09/10/25 04:00 Ordered CMP [Comprehensive Metabolic Panel] AM LABS Lab 09/11/25 04:00 Ordered Radiology Impressions Chest/Abdomen/Pelvis CT 09/06/25 02:39 IMPRESSION: 1. Possible segment of peripheral pulmonary artery embolus at the lingula. 2. Calcified thoracic aorta with limited assessment of the lumen by noncontrast opacification due to pulmonary embolus protocol. 3. Bilateral small pleural effusions. 4. Diffuse prominent ground-glass opacities throughout both lungs which could be on the basis of edema or infectious etiology. 5. Or focal interstitial infiltrates left lower lung and throughout the right lung most pronounced in the right lower lobe suspicious for pneumonia potentially aspiration. 6. Cardiac enlargement. (In IMPRESSION: 1. Bilateral renal cysts. No follow-up is required. 2. Scattered peripheral small lower attenuating areas and spleen are indeterminate. Differential might include small infarcts are should be correlated for any history of neoplasm for infiltrative process. 3. Multiple bladder calculi. 4. Enlargement of the prostate gland with lobular mass at the junction of bladder base and superior prostate gland probably a prostate gland origin. Consider genitourinary consultation. 5. Small low attenuating areas at the inguinal venous vasculature probably on the basis of venous contrast mixing. 6. Lower attenuating lesion lateral left kidney of higher attenuating cyst although further investigation is required with multiphase CT or multiphase MRI. COMMENTS: Consistent with the [place]'s Incidental Findings Committee white paper (J Am April Radiol 2018): Any incidental renal lesion less than 1 cm or classified as too small to characterize, or any incidental cystic renal lesion characterized as simple-appearing, is likely benign. No follow-up imaging is recommended for these lesions per consensus recommendations based on imaging criteria. ADDENDUM: 09/06/25 0437 THIS REPORT CONTAINS FINDINGS THAT MAY BE CRITICAL TO PATIENT CARE. The findings were verbally communicated via telephone conference with Fernando Demarco by Dr. Howell on 09/06/2025 4:35 AM PRESSURE VESSEL INSPECTOR. The results were acknowledged and understood. Head CT 09/06/25 02:39 IMPRESSION: No acute intracranial abnormality. Chest X-Ray 09/07/25 21:37 IMPRESSION: Near-complete opacification of the left hemithorax and given the fact that there is mediastinal shift to the left this may be due to postobstructive atelectasis. Can not exclude pleural effusion with adjacent compressive atelectasis or infiltrates. Additional infiltrates in the right lung base and interstitial prominence. Laboratory Results WBC 11.97 10^3/uL (3.29-11.43) H 09/07/25 04:38 RBC 4.64 10^6/uL (3.85-5.65) 09/07/25 04:38 Hgb 12.50 g/dL (11.27-16.99) 09/07/25 04:38 Hct 38.4 % (37-53) 09/07/25 04:38 MCV 82.8 fl (82-101) 09/07/25 04:38 MCH 26.9 pg (27-33) L 09/07/25 04:38 MCHC 32.6 g/dL (30-55) D 09/07/25 04:38 RDW 15.6 % (12.1-15.1) H 09/07/25 04:38 Plt Count 402 10^3/cmm (157-399) H D 09/07/25 04:38 MPV 10.9 fL (7.4-10.4) H 09/07/25 04:38 Neut % (Auto) 83.7 % 09/07/25 04:38 Lymph % (Auto) 8.6 % 09/07/25 04:38 [place] % (Auto) 6.5 % 09/07/25 04:38 Eos % (Auto) 0.2 % 09/07/25 04:38 Baso % (Auto) 0.5 % 09/07/25 04:38 Neut # (Auto) 10.02 10^3/uL (1.8-7.7) H 09/07/25 04:38 Lymph # (Auto) 1.0 10^3/uL (0.8-4.8) 09/07/25 04:38 [place] # (Auto) 0.8 10^3/uL (0.2-0.9) 09/07/25 04:38 Eos # (Auto) 0.0 10^3/uL (0.0-0.8) 09/07/25 04:38 Baso # (Auto) 0.1 10^3/uL (0.0-0.1) 09/07/25 04:38 Nucleated RBC % (auto) 0 % 09/07/25 04:38 Nucleated RBCs # 0.0 /100WBC 09/07/25 04:38 PT 14.80 SECONDS (12.1-14.9) 09/06/25 02:45 INR 1.08 (0.8-1.2) 09/06/25 02:45 APTT 69.8 SECONDS (23.9-36.7) H 09/07/25 19:33 Specimen Type Arterial 09/06/25 16:00 Sample Site Radial, left 09/06/25 16:00 ABG pH 7.49 (7.35-7.45) H 09/06/25 16:00 ABG pCO2 26.7 mmHg (35-45) L 09/06/25 16:00 ABG pO2 79.3 mmHg (80.0-100.0) L 09/06/25 16:00 ABG PO2/FiO2 Ratio 264 09/06/25 16:00 ABG HCO3 20.4 mmol/L (22-26) L 09/06/25 16:00 ABG O2 Saturation 97.1 09/06/25 16:00 ABG Base Excess -1.4 mmol/L (-2.0-2.0) 09/06/25 16:00 Jerel Test Pos 09/06/25 16:00 A-a O2 Gradient 13.0 mmHg (5-10) H 09/06/25 16:00 Hematocrit 44.8 % (42-52) 09/06/25 16:00 Hgb O2 Saturation 95.4 % (95-100) 09/06/25 16:00 Carboxyhemoglobin 0.6 %THgb (0.4-20.1) 09/06/25 16:00 Methemoglobin 1.1 % (0.4-1.5) 09/06/25 16:00 Total Hemoglobin 14.6 g/dL (14-18) 09/06/25 16:00 Sodium 142.0 mmol/L (131-143) 09/06/25 16:00 Potassium 3.5 mmol/L (3.5-5.0) 09/06/25 16:00 Glucose 120.0 mg/dL (70-115) H 09/06/25 16:00 Ionized Calcium 1.1 mmol/L (1.1-1.4) 09/06/25 16:00 O2 Delivery Device Vent 09/06/25 16:00 FiO2 30.0 % 09/06/25 16:00 Tidal Volume 0.45 09/06/25 16:00 PEEP 8.0 cmH20 09/06/25 16:00 Engineering Inspection Assistant ID Cak 09/06/25 16:00 Sodium 144 mmol/L (136-145) 09/07/25 04:38 Potassium 3.3 mmol/L (3.5-5.1) L 09/07/25 04:38 Chloride 109 mmol/L (98-107) H 09/07/25 04:38 Carbon Dioxide 21 mmol/L (22-29) L 09/07/25 04:38 Anion Gap 17.3 (5-19) 09/07/25 04:38 BUN 19 mg/dL (8-23) 09/07/25 04:38 Creatinine 0.5 mg/dL (0.7-1.2) L 09/07/25 04:38 GFR Calculation 166.4 mL/min (90-130) H 09/07/25 04:38 Glucose 114 mg/dL (65-115) 09/07/25 04:38 POC Glucose 124 mg/dL (70-110) H 09/07/25 21:56 Estimat Average Glucose 108 09/06/25 02:45 Hemoglobin A1c 5.4 % (4.0-6.0) 09/06/25 02:45 Calculated Osmolality 301 mOsm/kg (285-295) H 09/07/25 04:38 Lactic Acid 9.9 mmol/L (0.5-2.2) H* 09/06/25 02:45 Lactic Acid (Sepsis) 3.1 mmol/L (0.5-2.2) H 09/06/25 06:18 Lactate 1.9 mmol/L (0.5-2.2) 09/07/25 09:39 Calcium 8.0 mg/dL (8.5-10.5) L 09/07/25 04:38 Magnesium 2.6 mg/dL (1.7-2.3) H 09/06/25 02:45 Total Bilirubin 1.6 mg/dL (0.15-1.2) H 09/07/25 04:38 AST 58 U/L (0-40) H 09/07/25 04:38 ALT 27 U/L (0-41) 09/07/25 04:38 Alkaline Phosphatase 59 U/L (40-130) 09/07/25 04:38 Troponin T 5th Gen ng/L 1889 ng/L (0-15) H* 09/06/25 13:22 Troponin T Baseline 69 ng/L (0-15) H 09/06/25 02:45 Troponin T 120 Minute 823.0 ng/L (0-15) H 09/06/25 06:18 Delta Troponin T 754.0 ABS# (0-10) H* 09/06/25 06:18 Troponin T Hi Sens 6Hr 1701 ng/L (0-15) H 09/06/25 08:53 Troponin T Hi Sens 6Hr Delta 1632 ng/L (0-12) H* 09/06/25 08:53 NT-Pro-B Natriuret Pep 2458 pg/mL (0-125) H 09/06/25 02:45 Total Protein 5.0 g/dL (6.6-8.7) L 09/07/25 04:38 Albumin 3.0 g/dL (3.5-5.2) L 09/07/25 04:38 Globulin 2.0 g/dL (1.3-4.6) 09/07/25 04:38 Triglycerides 170 mg/dL (0-150) H 09/06/25 02:45 Cholesterol 286 mg/dL (0-200) H 09/06/25 02:45 LDL Cholesterol, Calc 177 mg/dL (50-129) H 09/06/25 02:45 HDL Cholesterol 75 mg/dL (60-100) 09/06/25 02:45 LDL/HDL Ratio 2.36 RATIO (0.00-3.22) 09/06/25 02:45 Cholesterol/HDL Ratio 3.81 mg/dL (1.0-5.00) 09/06/25 02:45 TSH 3.96 uIU/mL (0.27-4.20) 09/06/25 02:45 Urine Color Yellow (Yellow) 09/06/25 04:16 Urine Appearance Clear (CLEAR) 09/06/25 04:16 Urine pH 6.0 (5-7) 09/06/25 04:16 Ur Specific [place] 1.022 (1.005-1.030) 09/06/25 04:16 Urine Protein 2+ (Negative) A 09/06/25 04:16 Urine Glucose (UA) Trace (Normal) H 09/06/25 04:16 Urine Ketones Negative (Negative) 09/06/25 04:16 Urine Blood Non-haemolysed trace (Negative) 09/06/25 04:16 Urine Nitrate Negative (Negative) 09/06/25 04:16 Urine Bilirubin Negative (Negative) 09/06/25 04:16 Urine Urobilinogen 1.0 mg/dL (Negative) 09/06/25 04:16 Ur Leukocyte Esterase Trace (Negative) A 09/06/25 04:16 Urine RBC 3-5 /hpf (0-2) 09/06/25 04:16 Urine WBC >100 /hpf (0-5) H 09/06/25 04:16 Ur Squamous Epith Cells 0-5 /hpf (0-5) 09/06/25 04:16 Amorphous Sediment Not Reportable 09/06/25 04:16 Urine Bacteria None seen /hpf (NONE) 09/06/25 04:16 Hyaline Casts 2.87 /lpf 09/06/25 04:16 Urine Sperm 4+ /hpf 09/06/25 04:16 Vitals Last Vital Signs Temp 98.2 F 09/08/25 07:00 Pulse 116 H 09/08/25 08:00 Resp 15 09/09/25 14:48 BP 176/104 09/08/25 08:00 Pulse Ox 93 09/08/25 20:41 O2 Del Method Nasal Cannula 09/08/25 08:00 O2 Flow Rate 2 09/08/25 08:00 FiO2 100 09/07/25 21:15 Discharge Plan Discharge Patient Disposition: Home Condition: Stable Prescriptions: Discontinued bisacodyl 10 mg suppository 10 mg DC DAILY PRN (Reason: constipation) Qty: 5 0RF Rx Instructions: 1 suppository per rectum every day PRN for constipation. diphenhydramine HCl 25 mg tablet 25 mg PO Q4H Qty: 5 0RF Rx Instructions: Take one tablet by mouth every 4 hours as needed for allergic reaction including: Rash and/or Itching morphine 10 mg/5 mL solution 20 mg sublingual DIRECTED PRN (Reason: pain/SOB) 14 Days Qty: 100 0RF Rx Instructions: 2.5ml -10ml q1H PRN may increase to 5ml -10ml Q1H PRN hydroxyzine HCl 25 mg tablet 25 mg PO TID PRN (Reason: Itching) Qty: 5 0RF Rx Instructions: Take 1 table by mouth as needed three times a day for itching atropine 1 % drops 4 drp sublingual Q4H PRN (Reason: secretions) Qty: 5 0RF Rx Instructions: 4 drops SL q 4 hours PRN for terminal congestion/excessive secretions. ondansetron 4 mg tablet,disintegrating 4 mg translingual Q4H PRN (Reason: nausea) Qty: 5 0RF Rx Instructions: Dissolve 1 tablet under tongue every 4 hours PRN for nausea lorazepam 2 mg/mL concentrate 2 mg sublingual Q4H PRN (Reason: Anxiety/Seizure) Qty: 30 0RF Rx Instructions: 0.25ml-1ml q4H PRN Anxiety/Seizure Start 0.25ml may increase to 0.5ml-1ml q4H aspirin [Karmen Aspirin] 325 mg Tablet 325 mg PO PRN Discharge Order = DC NOW: Discharge Order (Routine); Ordered 09/09/25 Ordered By: Anya Olivarez Referrals: Leandro Main DO [Primary Care Provider, Internal Medicine] Discharge Diet: Advance as tolerated Discharge Activity: Bedrest Patient Instructions: Opioid Safety, Patient Portal & [facility]ida Instructions Activity Restrictions/Additional Instructions: followup with hospice at home Discharge Attestations Time Spent in Discharge Care*: greater than 30 min Quality Metrics Clinical Quality Measures [ Acute Myocardial Infaction { Clinical Trial Participant: No; Contraindication to aspirin: None; Aspirin prescribed; Contraindication to statin: None; Statin prescribed;}. No reported AMI, CVA or VTE this stay] Coding Level of Care Code Acute Code for [facility]wd Diagnoses Cardiac arrest I46.9 Heart failure I50.9 Heart failure chronicity: unspecified Heart failure type: unspecified Shock R57.9
[2025-09-09 17:15] VITALS: BP 0/0; PULSE 0; RESP 0; TEMP -17.7; TEMP 0; O2SAT 0
--- NOTE | 2025-09-09 17:17 | PC.NURSE ---
note Patient on 09/09/25 at 1712. at bedside. physician and hospice notified.
--- NOTE | 2025-09-09 18:14 | P.DES_ITS ---
Discharge Providers DDS Date of Admission: 09/06/25 11:06 Date Summary Completed: 09/09/25 Attending Provider at Admission: Checo Jay MD Attending Provider at Discharge: Anya Olivarez MD Primary Care Provider: DO KRISTEN Floyd Diagnoses Hospital Diagnoses 1. Cardiac arrest: 2. Heart failure: Qualifiers: Heart failure chronicity: unspecified Heart failure type: unspecified Qualified Code(s): I50.9 - Heart failure, unspecified 3. Shock: Reason for Visit Reason for Visit SOB Summary Summary Summary: Kel Pagan is a 64 year old male with reported history of hypertension who presented to the ED with complaints of shortness of breath. History is limited to spouse and grandson who are present as the patient is currently intubated. I am told the patient was in his usual state of health last night when he went to sleep and had trouble breathing when laying down. He then went to his couch where his dyspnea continued. By this time, he was having difficulty standing. Family delivered him to the ED where his shortness of breath worsened. His condition overall deteriorated in the ED and a CODE BLUE was called. In discussion with the ED physician, patient was thought to have PEA arrest and underwent 2-4 minutes of resuscitative efforts with ROSC. ED course was complicated by hypertension which was eventually improved with sedation after intubation, hinds catheter placement with release of 1.5L of urine, and labetalol administration. Workup in the ED with imaging suggest community aquired pneumonia and a small PE in the lingula In further discussion with the family, patient had no complaints prior to today. Last seen by his PCP about 3 years ago without reported concerns Hospital course: Patient was made to ICU on vent support. Cardiology ICU doctor consulted. Family reported that they did not feel patient would want to be on a ventilator or want aggressive resuscitation. Kids and reported this. They wanted extubation. As this is what he had told them in the past. Patient was extubated. He declined. He was transition to comfort care. in hospital Additional Data Advance directives?: No Discharge Plan Discharge Patient Disposition: Condition: Stable Probable Cause of Probable cause of : Cardiac arrest DS Attestations Time Spent in /Discharge Care*: greater than 30 min Quality - AMI: AMI present?: No Clinical Trial Participant: No Quality - Stroke: CVA present?: No Symptom Onset Unknown: No Quality - VTE: VTE present?: No Deep Vein Thrombosis/Pulmonary Embolism Present on Admission: No Coding Level of Care Code Acute Code for [facility] Fwd Diagnoses Cardiac arrest I46.9 Heart failure I50.9 Heart failure chronicity: unspecified Heart failure type: unspecified Shock R57.9
--- NOTE | 2025-09-09 20:20 | PC.NURSE ---
Marly Patient transferred 09/09/25 at 2020 to [facility] by Engine Manager Radha with all appropriate paperwork.
--- NOTE | 2025-09-10 01:50 | PC.NURSE ---
Addendum entered by Andie Johnson RN 09/10/25 06:52: contacted [facility] due to not hearing back from them at this time. confirmed with [facility] and [facility] that since pt family had declined MTS services, referral to [facility] was not placed. all organizations agreed to this. [facility]. Original Note: [facility] has released the body. spoke with SWETHA from [facility] at 0150. awaiting [facility] at this time.
== END 2025-09-09 17:12 | disposition expired | DRG 720 ==
LOC: ER 04:57 → ICU 11:07 → MEDSURG 09-08 10:03
PROVIDERS: Internal Medicine; Admitting Provider Family Medicine; Emergency Provider Student in an Organized Health Care Education/Training Program; PCP Internal Medicine; Visit Provider Internal Medicine
DX: A41.9 Sepsis, unspecified organism (principal); R65.21 Severe sepsis with septic shock; I46.9 Cardiac arrest, cause unspecified; J96.02 Acute respiratory failure with hypercapnia; I26.99 Other pulmonary embolism without acute cor pulmonale; G93.41 Metabolic encephalopathy; I21.4 Non-ST elevation (NSTEMI) myocardial infarction; I24.9 Acute ischemic heart disease, unspecified; E87.0 Hyperosmolality and hypernatremia; I11.0 Hypertensive heart disease with heart failure; I50.9 Heart failure, unspecified; J18.9 Pneumonia, unspecified organism; J96.01 Acute respiratory failure with hypoxia; R33.9 Retention of urine, unspecified; R74.01 Elevation of levels of liver transaminase levels; D75.1 Secondary polycythemia; D69.6 Thrombocytopenia, unspecified; E78.1 Pure hyperglyceridemia; I45.10 Unspecified right bundle-branch block; Z79.82 Long term (current) use of aspirin; Z51.5 Encounter for palliative care
CPT/HCPCS: 36415; 36416; 36573; 36592; 36600; 51702; 70450; 71045; 71275; 74177; 80051; 80053; 80061; 81001; 82330; 82805; 82962; 83036; 83605; 83735; 83880; 84443; 84484; 85025; 85610; 85730; 87040; 87070; 87086; 87205; 93005; 93306; 94002; 94003; 94799; 96365; 96366; 96367; 96372; 96375; 99291; 99292; C1751; J0456; J0696; J1644; J1815; J1938; J2060; J2250; J2270; J2405; J2704; J3010; J3480; J3490; J7030; J7050; J9999; Q3014